=== PATIENT | male | born 1965 | race Caucasian/White ===

== ENCOUNTER 2018-02-20 15:41 | Emergency (ER) | payer SELFPAY ==
[~2018-02-20] VITALS: Ht 167.6 cm; Wt 76.0 kg
[~2018-02-20 15:41] MED LIST: PENI500T PO; TYLE3 PO; Z.0.NO CURRENT MEDS
[2018-02-20 15:52] VITALS: BP 156/90; PULSE 104; RESP 16; TEMP 98.9; O2SAT 96
[2018-02-20 16:12] VITALS: O2SAT 97
--- NOTE | 2018-02-20 16:54 | PD ---
HPI Chief Complaint: Complaint Time Seen by Provider: 16:28 Travel History International Travel<30 days: No Contact w/Intl Traveler<30days: No Traveled to known affect area: No History of Present Illness HPI 52-year-old male complains of abdominal bloating, abdominal pain , scrotal swelling and shortness of breath. Patient states that the symptoms started 2 weeks ago. Patient states that he drinks alcohol daily. Patient states that he drinks 4- 5 mixed drinks a day for many years. Patient has not seen a physician for many years. Patient denies any medical problem. Patient denies any headache. Patient states that he has discomfort bilateral lower rib cage area and with shortness of breath. Patient states that he has mild aching abdominal pain diffuse over the abdomen. Patient denies any pain radiation. Patient denies any fever chills. Patient denies any back pain. Patient complained urinary frequency. Patient denies any nausea vomiting diarrhea. Patient states that he had constipation. PFSH Past Medical History Arthritis: No Asthma: No Autoimmune Disease: No Blood Disorders: No Anxiety: No Depression: No Heart Rhythm Problems: No Cancer: No High Cholesterol: No Chemotherapy: No Chest Pain: No Congestive Heart Failure: No COPD: No Cerebrovascular Accident: No Diabetes: No Diminished Hearing: No GERD: No Glaucoma: No Headaches: No Hepatitis: No Hiatal Hernia: No Hypertension: No Kidney Stones: No Myocardial Infarction: No Radiation Therapy: No Renal Failure: No Seizures: No Sickle Cell Disease: No Sleep Apnea: No Thyroid Disease: No Ulcer: No Tetanus Vaccination: > 5 Years Influenza Vaccination: No Past Surgical History Abdominal Surgery: Yes Appendectomy: Yes Cardiac Surgery: No Ear Surgery: No Endocrine Surgery: No Eye Surgery: No Genitourinary Surgery: No Gynecologic Surgery: No Oral Surgery: No Pacemaker: No Thoracic Surgery: No Other Surgery: Yes Social History Alcohol Use: Yes (6-7 VODKA DRINKS DAILY) Tobacco Use: No Substance Use: Yes (1-2 WKLY COCAINE AND MARIJUANA USE. ) Allergies-Medications (Allergen,Severity, Reaction): Coded Allergies: No Known Allergies (Verified Allergy, Severe, 02/20/18) Reported Meds & Prescriptions Reported Meds & Active Scripts Active Tylenol #3 (Acetaminophen/Codeine Phosphate) 300 Mg/30 Mg Tab 1 Tab PO QIDPRN FOR PAIN Pen Vk (Penicillin V Potassium) 500 Mg Tab 500 Mg PO QID Reported No Current Meds (Miscellaneous Medication) [facility] [place] General / Constitutional: No: Fever Eyes: No: Visual changes HENT: No: Headaches Cardiovascular: No: Chest Pain or Discomfort Respiratory: Positive: Shortness of Breath Gastrointestinal: Positive: Abdominal Pain Genitourinary: Positive: Frequency, Decreased Urinary Output, No: Dysuria Musculoskeletal: No: Pain Skin: No Rash Neurologic: No: Weakness Psychiatric: No: Depression Endocrine: No: Polydipsia Hematologic/Lymphatic: No: Easy Bruising Physical Exam Narrative GENERAL: Well-nourished, well-developed patient. SKIN: Focused skin assessment warm/dry. HEAD: Normocephalic. EYES: Mild bilateral scleral icterus. No injection or drainage. NECK: Supple, trachea midline. No JVD or lymphadenopathy. CARDIOVASCULAR: Regular rate and rhythm without murmurs, gallops, or rubs. RESPIRATORY: Breath sounds equal bilaterally. No accessory muscle use. GASTROINTESTINAL: Abdomen distended. Patient has mild diffuse tenderness over the abdomen. No rebound tenderness. MUSCULOSKELETAL: No cyanosis. Patient had +1 pitting edema lower extremity. BACK: Nontender without obvious deformity. No CVA tenderness. exam: Non-tenderness on palpation of the scrotum or penis. Mild edema noted. No redness no heat. No tenderness on palpation of the testicle. Neurologic exam normal. Data Data Last Documented VS Vital Signs Date Time Temp Pulse Resp B/P (MAP) Pulse Ox O2 Delivery O2 Flow Rate FiO2 02/20/18 17:52 98 16 150/95 (113) 97 Room Air 02/20/18 15:52 98.9 Orders Orders Complete Blood Count With Diff (02/20/18 16:38) Comprehensive Metabolic Panel (02/20/18 16:38) Prothrombin Time / Inr (Pt) (02/20/18 16:38) Act Partial Throm Time (Ptt) (02/20/18 16:38) Lipase (02/20/18 16:38) Urinalysis - C+S If Indicated (02/20/18 16:38) Ammonia (02/20/18 16:38) Chest, Single Ap (02/20/18 16:38) Ct Abd/Pel W/O Iv Contrast (02/20/18 16:38) Iv Access Insert/Monitor (02/20/18 16:38) Ecg Monitoring (02/20/18 16:38) Oximetry (02/20/18 16:38) Alcohol (Ethanol) (02/20/18 16:38) Potassium Chloride (Kcl) (02/20/18 17:45) Potassium Chlor 20 Meq Premix (Kcl 20 Me (02/20/18 17:45) Thiamine Inj (Thiamine Inj) (02/20/18 17:45) Labs Laboratory Tests Test 02/20/18 16:47 02/20/18 17:04 White Blood Count 10.0 TH/MM3 Red Blood Count 3.77 MIL/MM3 Hemoglobin 14.7 GM/DL Hematocrit 42.4 % Mean Corpuscular Volume 112.5 FL Mean Corpuscular Hemoglobin 39.0 PG Mean Corpuscular Hemoglobin Concent 34.6 % Red Cell Distribution Width 15.1 % Platelet Count 111 TH/MM3 Mean Platelet Volume 7.5 FL Neutrophils (%) (Auto) 73.4 % Lymphocytes (%) (Auto) 16.9 % Monocytes (%) (Auto) 8.6 % Eosinophils (%) (Auto) 0.8 % Basophils (%) (Auto) 0.3 % Neutrophils # (Auto) 7.3 TH/MM3 Lymphocytes # (Auto) 1.7 TH/MM3 Monocytes # (Auto) 0.9 TH/MM3 Eosinophils # (Auto) 0.1 TH/MM3 Basophils # (Auto) 0.0 TH/MM3 CBC Comment DIFF FINAL Differential Comment Prothrombin Time 11.4 SEC Prothromb Time International Ratio 1.1 RATIO Activated Partial Thromboplast Time 25.7 SEC Urine Color YELLOW Urine Turbidity CLEAR Urine pH 6.0 Urine Specific Joanna 1.025 Urine Protein 30 mg/dL Urine Glucose (UA) 100 mg/dL Urine Ketones TRACE mg/dL Urine Occult Blood NEG Urine Nitrite NEG Urine Bilirubin MOD Urine Urobilinogen GREATER/EQUAL 8.0 MG/DL Urine Leukocyte Esterase NEG Urine RBC 0-3 /hpf Urine WBC 0-2 /hpf Urine Squamous Epithelial Cells 0-5 /hpf Urine Calcium Oxalate Crystals MANY /hpf Urine Mucus MANY /lpf Microscopic Urinalysis Comment CULT NOT INDICATED Blood Urea Nitrogen 3 MG/DL Creatinine 0.52 MG/DL Random Glucose 109 MG/DL Total Protein 8.3 GM/DL Albumin 2.8 GM/DL Calcium Level 8.7 MG/DL Alkaline Phosphatase 356 U/L Aspartate Amino Transf (AST/SGOT) 259 U/L Alanine Aminotransferase (ALT/SGPT) 55 U/L Total Bilirubin 1.0 MG/DL Sodium Level 140 MEQ/L Potassium Level 2.8 MEQ/L Chloride Level 103 MEQ/L Carbon Dioxide Level 29.2 MEQ/L Anion Gap 8 MEQ/L Estimat Glomerular Filtration Rate 166 ML/MIN Lipase 425 U/L Ethyl Alcohol Level 159 MG/DL Ammonia 54 MCMOL/L [facility] Medical Decision Making Medical Screen Exam Complete: Yes Emergency Medical Condition: Yes Interpretation(s) 1734 PM. CBC with WBC 10.0. Hemoglobin 14.7 hematocrit 42.4. MCV 112.5. Platelet 111. 73 neutrophil. Potassium 2.8. AST 259. Alkaline phosphatase 356. Ammonia 54. Lipase 425. 1808 p.m. Last Impressions Chest X-Ray 02/20/181637 Signed Impressions: Service Date/Time: Tuesday, February 20, 2018 16:46 - CONCLUSION: 11 mm opacity lower lateral right lung could represent pulmonary nodule or focal infiltrate. Jaquan Gonzáles MD Abdomen/Pelvis CT 02/20/181637 Signed Impressions: Service Date/Time: Tuesday, February 20, 2018 17:13 - CONCLUSION: 1. No calcified renal stones or hydronephrosis. 2. Nonspecific scattered subcentimeter periaortic lymph nodes. 3. Steatosis the liver. Jaquan Gonzáles MD 1819 p.m. Alcohol 159. Differential Diagnosis Differential diagnosis including abdominal ascites, liver cirrhosis, CHF, electrolyte abnormality. Narrative Course 52-year-old male with abdominal distention, shortness of breath, scrotal edema. History of EtOH abuse. KCl 40 mEq p.o. given. KCl 20 mEq IV given. Thiamine 100 mg IV given. Diagnosis Primary Impression: Hypokalemia Additional Impressions: Transaminitis Increased ammonia level Alcohol abuse Scrotal edema Patient Instructions: General Instructions Additional Instructions: Take potassium as directed. Advised [facility] alcohol problem. Follow-up local physician. 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 Follow with local physician for nodule pulmonary nodule. Return if increasing pain swelling scrotum. Med/Other Pt SpecificInfo: Prescription(s) given Scripts Potassium Chloride ER (Potassium Chloride ER) 10 Meq Cap 10 MEQ PO DAILY for Electrolyte Replacement, #10 CAP 0 Refills Prov: Codey Manuel MD 4/30/18 Disposition: 01 DISCHARGE HOME Condition: Stable Codey Manuel MD Feb 20, 2018 16:54
[2018-02-20 17:11] LABS: BILIRUBIN, URINE MOD (NEG); BLOOD, URINE NEG (NEG); GLUCOSE,URINE 100 mg/dL (NEG); KETONE, URINE TRACE mg/dL (NEG); NITRITE,URINE NEG (NEG); URINE COLOR YELLOW (YELLW/STRAW); URINE LEUKOCYTE ESTERASE NEG (NEG)
[2018-02-20 17:18] LABS: AUTOMATED NEUTROPHIL # 7.3 TH/MM3 (1.8-7.7); BASOPHIL % 0.3 % (0.0-2.0); EOSINOPHIL # 0.1 TH/MM3 (0-0.4); EOSINOPHIL % 0.8 % (0.0-4.0); HEMATOCRIT 42.4 % (39.0-51.0); HEMOGLOBIN 14.7 GM/DL (13.0-17.0); INTERNATIONAL NORMALIZED RATIO 1.1 RATIO; LYMPH % 16.9 % (9.0-44.0); LYMPHOCYTE # 1.7 TH/MM3 (1.0-4.8); MEAN CELL VOLUME 112.5 FL (80.0-100.0); MEAN CORPUSCULAR HGB CONC 34.6 % (32.0-36.0); MEAN PLATELET VOLUME 7.5 FL (7.0-11.0); MONO % 8.6 % (0.0-8.0); MONOCYTE # 0.9 TH/MM3 (0-0.9); NEUT % 73.4 % (16.0-70.0); PLATELET COUNT 111 TH/MM3 (150-450); PROTHROMBIN TIME - PATIENT 11.4 SEC (9.8-11.6); RED BLOOD COUNT 3.77 MIL/MM3 (4.50-5.90); RED CELL DISTRIBUTION WIDTH 15.1 % (11.6-17.2)
--- NOTE | 2018-02-20 17:27 | RADRPT ---
EXAM DATE/TIME: 02/20/2018 16:46 [facility] COMPARISON: CT ABDOMEN & PELVIS W/O CONTRAST, February 20, 2018, 17:13. INDICATIONS : Shortness of breath. MEDICAL HISTORY : None. SURGICAL HISTORY : None. ENCOUNTER: Initial ACUITY: 1 day PAIN SCORE: 0/10 LOCATION: Bilateral chest FINDINGS: The lungs are symmetrically aerated. There is a focal opacity seen laterally in the lower right lung measuring 11 mm. Both hemidiaphragms are well delineated. The heart is normal in size. CONCLUSION: 11 mm opacity lower lateral right lung could represent pulmonary nodule or focal infiltrate. Jaquan Gonzáles MD on February 20, 2018.at 17:24 Board Certified Radiologist. This report was verified electronically.
[2018-02-20 17:29] LABS: ALBUMIN 2.8 GM/DL (3.4-5.0); ALKALINE PHOSPHATASE 356 U/L (45-117); ALT (GPT) 55 U/L (12-78); AST (GOT) 259 U/L (15-37); BICARBONATE 29.2 MEQ/L (21.0-32.0); BLOOD UREA NITROGEN 3 MG/DL (7-18); CALCIUM 8.7 MG/DL (8.5-10.1); CHLORIDE 103 MEQ/L (98-107); CREATININE 0.52 MG/DL (0.60-1.30); GLOMERULAR FILTRATION RATE 166 ML/MIN (>89); GLUCOSE,RANDOM 109 MG/DL (74-106); SODIUM (NA) 140 MEQ/L (136-145); TOTAL PROTEIN 8.3 GM/DL (6.4-8.2)
[2018-02-20] MEDS ORDERED: THIAMINE INJ 100 MG in SODIUM CHLORIDE 0.9% INJ 100 ML IV ONE (17:45)
[2018-02-20] MEDS ORDERED: POTASSIUM CHLOR 20 MEQ PREMIX 100 ML IV ONE (17:45)
[2018-02-20] MEDS ORDERED: POTASSIUM CHLORIDE 20 MEQ CONTROLLED RELEASE TAB PO ONE (17:45)
[2018-02-20 17:46] LABS: MUCUS URINE MANY /lpf (OCC); RBC, URINE 0-3 /hpf (0-3); SQUAMOUS EPITHELIAL CELL URINE 0-5 /hpf (0-5); WBC, URINE 0-2 /hpf (0-5)
[2018-02-20 17:47] LABS: CALCIUM OXALATE CRYSTALS,URINE MANY /hpf
[2018-02-20 17:52] VITALS: BP 150/95; PULSE 98; RESP 16; O2SAT 97
--- NOTE | 2018-02-20 17:59 | RADRPT ---
EXAM DATE/TIME: 02/20/2018 17:13 [facility] COMPARISON: No previous studies available for comparison. INDICATIONS : Abdominal bloating and scrotal swelling with shortness of breath. ORAL CONTRAST: No oral contrast ingested. RADIATION DOSE: 12.31 CTDIvol (mGy) MEDICAL HISTORY : None SURGICAL HISTORY : Appendectomy. ENCOUNTER: Initial ACUITY: 2 weeks PAIN SCALE: 7/10 LOCATION: Bilateral pelvis abdomen TECHNIQUE: Volumetric scanning of the abdomen and pelvis was performed. Using automated exposure control and ad justment of the mA and/or kV according to patient size, radiation dose was kept as low as reasonably achievable to obtain optimal diagnostic quality images. DICOM format image data is available electro nically for review and comparison. FINDINGS: LOWER LUNGS: The visualized lower lungs are clear. LIVER: Diffuse fatty change throughout the liver. No focal lesions for noncontrast technique. No calcified gallstones. SPLEEN: Normal size without lesion. PANCREAS: Within normal limits. KIDNEYS: Normal in size and shape. There is no mass, stone, or hydronephrosis. ADRENAL GLANDS: Within normal limits. VASCULAR: There is no aortic aneurysm. BOWEL/MESENTERY: The stomach, small bowel, and colon demonstrate no acute abnormality. There is no free intraperitone al air or fluid. ABDOMINAL WALL: Within normal limits. RETROPERITONEUM: Multiple subcentimeter periaortic lymph nodes, nonspecific in appearance. BLADDER: No wall thickening or mass. REPRODUCTIVE: Within normal limits. INGUINAL: There is no lymphadenopathy or hernia. MUSCULOSKELETAL: Within normal limits for patient age. CONCLUSION: 1. No calcified renal stones or hydronephrosis. 2. Nonspecific scattered subcentimeter periaortic lymph nodes. 3. Steatosis the liver. Jaquan Gonzáles MD on February 20, 2018 at 17:54 Board Certified Radiologist. This report was verified electronically.
[2018-02-20] MEDS ORDERED: POTA10CA PO (18:33)
[2018-02-20 19:21] VITALS: BP 147/94; PULSE 93; RESP 18; O2SAT 97
== END 2018-02-20 19:28 | disposition home or self-care (01) ==
LOC: PHED 15:41
DX: E87.6 Hypokalemia (principal); R74.0 Nonspecific elevation of levels of transaminase and lactic acid dehydrogenase [LDH]; F10.10 Alcohol abuse, uncomplicated; Y90.6 Blood alcohol level of 120-199 mg/100 ml; N50.89 Other specified disorders of the male genital organs; R06.02 Shortness of breath; K59.00 Constipation, unspecified; F12.90 Cannabis use, unspecified, uncomplicated
CPT/HCPCS: 71045; 74176; 80053; 80307; 81001; 82140; 83690; 85025; 85610; 85730; 96365; 96366; 96368; 99285; J3411; J3480

== ENCOUNTER 2018-04-27 05:46 | Inpatient (IN) ==
[2018-04-27] MEDS ORDERED: Pantoprazole Inj 40 MG Vial IV.PUSH ONE ×2 (07:13→07:40)
[2018-04-27 07:43] LABS: Baso # (Auto) 0.1 th/mm3 (0.0-0.2); Baso % (Auto) 0.4 % (0.0-2.0); Eos % (Auto) 0.1 % (0.0-4.0); Hematocrit 43.5 % (39.0-51.0); Hemoglobin 15.1 gm/dL (13.0-17.0); Lymph # (Auto) 1.6 th/mm3 (1.0-4.8); Lymph % (Auto) 11.5 % (9.0-44.0); Mean Corpuscular HGB Conc 34.6 % (32.0-36.0); Mean Corpuscular Hemoglobin 38.3 pg (27.0-34.0); Mean Corpuscular Volume 110.7 fL (80.0-100.0); Mean Platelet Volume 8.4 fL (7.0-11.0); Mono # (Auto) 1.1 th/mm3 (0.0-0.9); Mono % (Auto) 8.3 % (0.0-8.0); Neut % (Auto) 79.7 % (16.0-70.0); Platelet Count 130 th/mm3 (150-450); Red Blood Count 3.93 mil/mm3 (4.50-5.90); Red Cell Distribution Width 13.7 % (11.6-17.2); White Blood Count 13.8 th/mm3 (4.0-11.0)
--- NOTE | 2018-04-27 07:48 | ED ---
HPI General Chief Complaint: Abdominal Pain Stated Complaint: ABD PAIN/V BLOOD Time Seen by Provider: 04/27/18 07:35 Source: patient and family Limitations: no limitations History of Present Illness HPI narrative: 52 old male with episode of abdominal pain and right testicle swelled pain and redness since January. He states he went to [facility] and had workup and was told that he needed to lose weight. He states he has not been evaluated further since then but his symptoms persisted and got worse over the past couple days so he elected to come in. He states he also started having blood when he vomits over the past couple of days. complaint: abdominal pain Onset (ago): month(s) Pain Consistency: constant Location: diffuse Severity: severe Quality: sharp Radiation: none Migration to: no migration Relieving factors: nothing Exacerbating factors: movement Context: history of similar episodes Associated symptoms: other Related Data Home Medications Medication Instructions Recorded Confirmed No Known Home Medications 04/27/18 04/27/18 Allergies Allergy/AdvReac Type Severity Reaction Status Date / Time No Known Allergies Allergy Unverified 04/27/18 09:41 Review of Systems ROS Unobtainable All other systems reviewed negative except as stated in HPI [facility] Social History Social History Substance History: No History of Abuse Second Hand Smoke Exposure: No Smoking Status: Former smoker How Often Do You Have a Drink Containing Alcohol: 4 or more times a week ( EXCESSIVE ALCOHOL ABUSE) Recent Travel in [facility] within the Last 8 Weeks: No Recent Out of Country Travel within the Last 8 Weeks: No Immunization History Tetanus Immunization: Unsure Hx Influenza Vaccine This Season: No Exam Narrative Exam Narrative: GENERAL: 52-year-old male who appears uncomfortable SKIN: Focused skin assessment warm/dry. HEAD: Atraumatic. Normocephalic. EYES: Pupils equal and round. No scleral icterus. No injection or drainage. ENT: No nasal bleeding or discharge. Mucous membranes pink and moist. NECK: Trachea midline. CARDIOVASCULAR: Tachycardic rate and rhythm. No murmur appreciated. RESPIRATORY: No accessory muscle use. Clear to auscultation. Breath sounds equal bilaterally. GASTROINTESTINAL: Abdomen soft, mild tenderness diffusely with moderate distention. MUSCULOSKELETAL: No obvious deformities. No clubbing. No cyanosis. No edema. NEUROLOGICAL: Awake and alert. No obvious cranial nerve deficits. Motor grossly within normal limits. Normal speech. GENITOURINARY: Testes descended bilaterally. Right testicle appears enlarged with overlying redness to scrotal sac, No urethral discharge. Course Hospital Course: Workup reveals elevated LFTs and given hematemesis he will need further workup. He was placed on Protonix and octreotide and agrees to admission Consultations Consultation #1: Dr. Joiner agrees to admission Initial Documented Vital Signs Temperature 98.3 F 04/27/18 05:59 Pulse Rate 120 H 04/27/18 05:59 Respiratory Rate 20 04/27/18 05:59 Blood Pressure 125/73 04/27/18 05:59 Pulse Oximetry 100 04/27/18 05:59 Last Documented Vital Signs Temperature 97.8 F 04/27/18 13:09 Pulse Rate 102 H 04/27/18 13:09 Respiratory Rate 18 04/27/18 13:09 Blood Pressure 130/81 04/27/18 13:09 Pulse Oximetry 98 04/27/18 09:00 Medical Decision Making [facility] Narrative Medical decision making narrative: A 52-year-old male with hematemesis for 2 days with persistent abdominal pain. Patient also has enlarged right testicle area with overlying redness that has not been worked up. Will check blood work , urinalysis, Doppler ultrasound, CT and place on Protonix and IV fluids and reevaluate. Differential Diagnosis Differential Diagnosis: Torsion, mass, hernia, gastritis, gastroenteritis, diverticulosis Lab Data Lab results reviewed: Yes I reviewed the patient's lab results. Result diagrams: 04/27/18 14:40 04/27/18 07:11 Lab Results 04/27/18 04/27/18 04/27/18 Range/Units 07:11 07:11 07:11 WBC 13.8 H (4.0-11.0) th/mm3 RBC 3.93 L (4.50-5.90) mil/mm3 Hgb 15.1 (13.0-17.0) gm/dL Hct 43.5 (39.0-51.0) % MCV 110.7 H (80.0-100.0) fL MCH 38.3 H (27.0-34.0) pg MCHC 34.6 (32.0-36.0) % RDW 13.7 (11.6-17.2) % Plt Count 130 L (150-450) th/mm3 MPV 8.4 (7.0-11.0) fL Neut % (Auto) 79.7 H (16.0-70.0) % Lymph % (Auto) 11.5 (9.0-44.0) % [place] % (Auto) 8.3 H (0.0-8.0) % Eos % (Auto) 0.1 (0.0-4.0) % Baso % (Auto) 0.4 (0.0-2.0) % Neut # (Auto) 11.0 H (1.8-7.7) th/mm3 Lymph # (Auto) 1.6 (1.0-4.8) th/mm3 [place] # (Auto) 1.1 H (0.0-0.9) th/mm3 Eos # (Auto) 0.0 (0.0-0.4) th/mm3 Baso # (Auto) 0.1 (0.0-0.2) th/mm3 WBC Differential . Differential Comment Auto diff final Sodium 136 (136-145) meq/L Potassium 3.2 L (3.5-5.1) meq/L Chloride 94 L (98-107) meq/L Carbon Dioxide 26.8 (21.0-32.0) meq/L Anion Gap 15 (5-15) meq/L BUN 3 L (7-18) mg/dL Creatinine 0.68 (0.60-1.30) mg/dL Estimated GFR Greater than 89 (>89) mL/min Random Glucose 94 (74-106) mg/dL Calcium 8.7 (8.5-10.1) mg/dL Total Bilirubin 6.2 H (0.2-1.0) mg/dL AST 236 H (15-37) U/L ALT 44 (12-78) U/L Alkaline Phosphatase 345 H (45-117) U/L Total Protein 8.9 H (6.4-8.2) g/dL Albumin 2.5 L (3.4-5.0) g/dL Lipase 108 (73-393) U/L Urine Color (Yellw/Straw) Urine Clarity (Clear) Urine pH (5.0-8.5) Ur Specific [place] (1.002-1.035) Urine Protein (Neg-Trace) mg/dL Urine Glucose (UA) (Negative) mg/dL Urine Ketones (Negative) mg/dL Urine Occult Blood (Negative) Urine Nitrate (Negative) Urine Bilirubin (Negative) Urine Ictotest (Negative) Urine Urobilinogen (Less than 2) mg/dL Ur Leukocyte Esterase (Negative) Urine RBC (0-3) /hpf Urine WBC (0-5) /hpf Ur Squamous Epith Cells (0-5) /hpf Urine Bacteria (None) /hpf Hyaline Casts (0-3) /lpf Urine Mucus (Occasional) /lpf Micro UA Comment Urine Culture Comments Blood Type B Positive Antibody Screen Negative 04/27/18 04/27/18 Range/Units 08:00 14:40 WBC (4.0-11.0) th/mm3 RBC (4.50-5.90) mil/mm3 Hgb 14.8 (13.0-17.0) gm/dL Hct 43.3 (39.0-51.0) % MCV (80.0-100.0) fL MCH (27.0-34.0) pg MCHC (32.0-36.0) % RDW (11.6-17.2) % Plt Count (150-450) th/mm3 MPV (7.0-11.0) fL Neut % (Auto) (16.0-70.0) % Lymph % (Auto) (9.0-44.0) % Roosevelt % (Auto) (0.0-8.0) % Eos % (Auto) (0.0-4.0) % Baso % (Auto) (0.0-2.0) % Neut # (Auto) (1.8-7.7) th/mm3 Lymph # (Auto) (1.0-4.8) th/mm3 Roosevelt # (Auto) (0.0-0.9) th/mm3 Eos # (Auto) (0.0-0.4) th/mm3 Baso # (Auto) (0.0-0.2) th/mm3 WBC Differential Differential Comment Sodium (136-145) meq/L Potassium (3.5-5.1) meq/L Chloride (98-107) meq/L Carbon Dioxide (21.0-32.0) meq/L Anion Gap (5-15) meq/L BUN (7-18) mg/dL Creatinine (0.60-1.30) mg/dL Estimated GFR (>89) mL/min Random Glucose (74-106) mg/dL Calcium (8.5-10.1) mg/dL Total Bilirubin (0.2-1.0) mg/dL AST (15-37) U/L ALT (12-78) U/L Alkaline Phosphatase (45-117) U/L Total Protein (6.4-8.2) g/dL Albumin (3.4-5.0) g/dL Lipase (73-393) U/L Urine Color [place] (Yellw/Straw) Urine Clarity Clear (Clear) Urine pH 6.0 (5.0-8.5) Ur Specific [place] 1.020 (1.002-1.035) Urine Protein 30 H (Neg-Trace) mg/dL Urine Glucose (UA) Negative (Negative) mg/dL Urine Ketones Negative (Negative) mg/dL Urine Occult Blood Negative (Negative) Urine Nitrate Negative (Negative) Urine Bilirubin Moderate H (Negative) Urine Ictotest Positive H (Negative) Urine Urobilinogen 4 or greater (Less than 2) mg/dL Ur Leukocyte Esterase Negative (Negative) Urine RBC 1 (0-3) /hpf Urine WBC 7 H (0-5) /hpf Ur Squamous Epith Cells <1 (0-5) /hpf Urine Bacteria Occasional H (None) /hpf Hyaline Casts 10 (0-3) /lpf Urine Mucus Many H (Occasional) /lpf Micro UA Comment Culture not ind Urine Culture Comments Culture not ind Blood Type Antibody Screen Imaging Data Attestation: I personally reviewed and interpreted this imaging study as follows : Radiologist's impression: ITS Impressions Abdomen/Pelvis CT 04/27/18 07:13 CONCLUSION: 1. Stable CT scan of the abdomen and pelvis compared to the prior study. 2. Stable hepatomegaly with diffuse fatty infiltration and/or hepatocellular disease . 3. There is a trace of ascites adjacent to the liver and deep in the pelvis. 4. A few stable nonspecific subcentimeter para-aortic lymph nodes. Scrotum Ultrasound 04/27/18 07:40 CONCLUSION: 1. Both testicles are within normal limits. 2. There is a simple appearing left epididymal cyst in the head of the epididymis measuring 1.6 x 1.7 cm. 3. There is a moderate to large right-sided hydrocele. Discharge Plan Discharge Disposition Patient Disposition: 30 Still Patient Discharge Details Discharge Problem: Hematemesis, Elevated LFTs, Abdominal pain, Left hydrocele, Alcohol abuse Physicians Team ED Provider: Shereen Oneil Primary Care Provider: UNKNOWN, Attending Provider: Valdez Joiner Other Providers: Cindy Pond Discharge Interventions Interventions: Vital Signs Last Done: 04/27/18 11:03 Status ED Status: Admitted Patient
[2018-04-27 07:58] LABS: Alanine Aminotransferase 44 U/L (12-78)
[2018-04-27 08:01] LABS: Alkaline Phosphatase 345 U/L (45-117); Total Protein 8.9 g/dL (6.4-8.2)
[2018-04-27 08:03] LABS: Albumin 2.5 g/dL (3.4-5.0); Anion Gap 15 meq/L (5-15); Blood Urea Nitrogen 3 mg/dL (7-18); Calcium 8.7 mg/dL (8.5-10.1); Carbon Dioxide 26.8 meq/L (21.0-32.0); Chloride 94 meq/L (98-107); Glomerular Filtration Rate Greater Than 89 mL/min (>89); Glucose,Random 94 mg/dL (74-106); Lipase 108 U/L (73-393); Sodium 136 meq/L (136-145)
[2018-04-27 08:04] LABS: Aspartate Aminotransferase 236 U/L (15-37); Potassium 3.2 meq/L (3.5-5.1)
[2018-04-27 08:48] LABS: Bacteria,Urine Occasional /hpf; Bilirubin,Urine Moderate (Negative); Clarity,Urine Clear (Clear); Color,Urine Amber (Yellw/Straw); Glucose,Urine (UA) Negative (Negative); Hyaline Casts,Urine 10 /lpf (0-3); Leukocyte Esterase,Urine Negative (Negative); Mucus,Urine Many /lpf (Occasional); Nitrite,Urine Negative (Negative); Squamous Epithelial Cell,Urine <1 /hpf (0-5); Urobilinogen,Urine 4 or Greater mg/dL (Less than 2)
[2018-04-27 08:49] LABS: Ictotest,Urine Positive (Negative)
--- NOTE | 2018-04-27 09:00 | US ---
EXAM DATE: 04/27/2018 8:47 AM EDT AGE/SEX: 52 years / Male INDICATIONS: Testicular pain. CLINICAL DATA: This is the patient's initial encounter. Patient reports that signs and symptoms have been present for 2 months and indicates a pain score of 4/10. MEDICAL/SURGICAL HISTORY: . Testicular pain. None. COMPARISON: [facility], CT ABDOMEN & PELVIS W/O CONTRAST, 02/20/2018. . MEASUREMENTS: Right Testicle:__4.8 x 3.0 x 2.1 cm Left Testicle:__4.1 x 2.7 x 1.8 cm FINDINGS: RIGHT: Testicle: Homogeneous echotexture without intra or extratesticular mass. Blood flow is symmetric and within normal limits. There is a tiny appendix teste measuring 4 mm. Epididymis: Within normal limits. Hydrocele: Moderate-large hydrocele present. Varicocele: No evidence of varicocele. LEFT: Testicle: Homogeneous echotexture without intra or extratesticular mass. Blood flow is symmetric and within normal limits. Epididymis: There is a cyst in the head of the left epididymis measuring approximately 1.6 x 1.7. Hydrocele: No hydrocele. Varicocele: No evidence of varicocele. Scrotum: Within normal limits. CONCLUSION: 1. Both testicles are within normal limits. 2. There is a simple appearing left epididymal cyst in the head of the epididymis measuring 1.6 x 1. 7 cm. 3. There is a moderate to large right-sided hydrocele. Electronically signed by: Baltazar Lipscomb MD 04/27/2018 8:59 AM EDT
[2018-04-27] MEDS: Pantoprazole Inj 80 MG in Sodium Chlor 0.9% Inj 100 ML IV.CONT SCH ×2 (10:05→17:47)
[2018-04-27] MEDS: Octreotide Inj 500 MCG in Sodium Chlor 0.9% Inj 500 ML IV.CONT SCH (10:05)
[2018-04-27] MEDS ORDERED: Acetaminophen 325 MG Tablet PO PRN ×2 (11:16)
[2018-04-27] MEDS ORDERED: Naloxone Inj 0.4 MG/ML Vial IV.PUSH PRN (11:16)
[2018-04-27] MEDS ORDERED: Morphine Inj 4 MG/ML Vial IV.PUSH PRN ×2 (11:16)
[2018-04-27] MEDS ORDERED: Bisacodyl 10 MG Supp RECTAL PRN (11:16)
[2018-04-27] MEDS: KCL 20 mEq/D5W/NaCl 0.45% Inj 1,000 ML IV.CONT SCH (12:06)
--- NOTE | 2018-04-27 12:31 | P.CONGI ---
History of Present Illness Consult date: 04/27/18 Consult reason: Hematemesis Chief complaint: Hematemesis, hyperbilirubinemia, abdominal pain History of Present Illness: This is a 52 yo M with medical history significant for ETOH abuse who presents to [facility] with complaints of shortness of breath, testicular swelling, abdominal pain and swelling, and hematemesis. Our service has been consulted to evaluate pt for reports of hematemesis. Pt reports he has been having generalized abdominal pain for months associated with swelling. Pain is described as a grumbling sensation when he lies down and becomes unbearable with sharp pains made worse with movement and palpation. Was seen at [facility] emergency department for same complaint in January, CT abdomen and pelvis was done which revealed nonspecific scattered subcentimeter periaortic lymph nodes and steatosis of the liver, pt was discharged home with Potassium supplements. Pt reports he is now having hematemesis for the past three days, approximately 4 episodes, last episode at home prior to coming to the hospital. Prior to this he experiencing a lot of nausea and dry heaves. Denies hematochezia and melena. No BM in over a week, has tried Dulcolax at home with no relief. States does not normally have issues with constipation. Reports he has never seen a GI doctor in the past, no previous EGD or colonoscopy. Pt is noted to have elevated LFTs, he is a heavy drinker, reports a few drinks of liquor daily. Denies known diagnosis of liver issues. Denies illicit drug use and nicotine use. <Dea Godfrey - Last Filed: 04/27/18 12:14> Review of Systems Gastrointestinal: Reports abdominal pain, Reports bloating, Reports constipation , Reports nausea, Reports vomiting, Reports vomiting blood, Denies black, tarry stools, Denies bright, red blood in stools, Denies difficulty swallowing, Denies incontinent of stools, Denies pain with swallowing <Dea Godfrey - Last Filed: 04/27/18 12:14> PMFSH - History History Provided By: Patient - Tobacco History Second Hand Smoke Exposure: No Tobacco Use In Past 30 Days: No Smoking Status: Former smoker - Alcohol History How Often Do You Have a Drink Containing Alcohol: 4 or more times a week - Substance Use History Substance History: No History of Abuse - Travel History Recent Travel in the [facility] Within the Last 8 Weeks: No Recent Travel Out of the Country Within the Last 8 Weeks: No - Immunization History Tetanus Immunization: Unsure Hx Influenza Vaccine This Season: No <JoseduglasDea - Last Filed: 04/27/18 12:14> Medications and Allergies Active Medications: Active Medications Acetaminophen (Tylenol) 650 mg PO Q4H PRN PRN Reason: Temp > 100.4 Acetaminophen (Tylenol) 650 mg PO Q6H PRN PRN Reason: PAIN SCALE 1 TO 2 Al Hydroxide/Mg Hydroxide (Milk Of Magnesia Liq) 30 ml PO Q12H PRN PRN Reason: Mild Constipation Bisacodyl (Dulcolax Supp) 10 mg RECTAL DAILY PRN PRN Reason: SEVERE CONSITIPATION Octreotide Acetate 500 mcg/ (Sodium Chloride) 500.5 mls @ 25.02 mls/hr IV.CONT .Q20H1M [facility] Last Admin: 04/27/18 10:05 Dose: 25 mcg/hr, 25.02 mls/hr Pantoprazole Sodium 80 mg/ (Sodium Chloride) 100 mls @ 10 mls/hr IV.CONT CONT [facility] Last Admin: 04/27/18 10:05 Dose: 10 mls/hr Ceftriaxone Sodium 1,000 mg/ (Sodium Chloride) 100 mls @ 200 mls/hr IV.SIG Q24H [facility] Last Admin: 04/27/18 12:06 Dose: 200 mls/hr Potassium Chloride/Dextrose/Sod Cl (D5w/1/2ns + Kcl 20 Meq Inj) 1,000 mls @ 100 mls/hr IV.CONT .Q10H [facility] Last Admin: 04/27/18 12:06 Dose: 100 mls/hr Lactulose (Lactulose Liq) 30 ml PO DAILY PRN PRN Reason: SEVERE CONSITIPATION Metoclopramide HCl (Reglan Inj) 5 mg IV.PUSH Q6H PRN; Protocol PRN Reason: NAUSEA OR VOMITING Morphine Sulfate (Morphine Inj) 2 mg IV.PUSH Q3H PRN PRN Reason: PAIN 3-5; IF UABLE TO TAKE PO Morphine Sulfate (Morphine Inj) 4 mg IV.PUSH Q3H PRN PRN Reason: PAIN 6-10;IF UNABLE TO TAKE PO Naloxone HCl (Narcan Inj) 0.4 mg IV.PUSH UNSCH PRN PRN Reason: SEE LABEL COMMENTS Ondansetron HCl (Zofran Odt) 4 mg PO Q6H PRN PRN Reason: NAUSEA OR VOMITING Oxycodone/Acetaminophen (Percocet 10/325 Mg) 1 tab PO Q6H PRN PRN Reason: PAIN SCALE 6 TO 10 Oxycodone/Acetaminophen (Percocet 5/325 Mg) 1 tab PO Q6H PRN PRN Reason: PAIN SCALE 3 TO 5 Pantoprazole Sodium (Protonix Inj) 40 mg IV.PUSH BID TOM Senna/Docusate Sodium (Anabel-Colace) 1 tab PO BID TOM Sennosides (Senokot) 17.2 mg PO Q12H PRN PRN Reason: Moderate Constipation Sodium Chloride (Ns Flush) 2 ml IV.FLUSH BID TOM Sodium Chloride (Ns Flush) 2 ml IV.FLUSH UNSCH PRN PRN Reason: FLUSH AFTER USING IV ACCESS Temazepam (Restoril) 15 mg PO HS PRN PRN Reason: INSOMNIA <Dea Godrfey - Last Filed: 04/27/18 12:14> Active Medications: Active Medications Acetaminophen (Tylenol) 650 mg PO Q4H PRN PRN Reason: Temp > 100.4 Acetaminophen (Tylenol) 650 mg PO Q6H PRN PRN Reason: PAIN SCALE 1 TO 2 Al Hydroxide/Mg Hydroxide (Milk Of Magnesia Liq) 30 ml PO Q12H PRN PRN Reason: Mild Constipation Bisacodyl (Dulcolax Supp) 10 mg RECTAL DAILY PRN PRN Reason: SEVERE CONSITIPATION Clonidine HCl (Catapres) 0.1 mg PO Q6HR PRN PRN Reason: HYPERTENSION Octreotide Acetate 500 mcg/ (Sodium Chloride) 500.5 mls @ 25.02 mls/hr IV.CONT .Q20H1M [facility] Last Admin: 04/27/18 10:05 Dose: 25 mcg/hr, 25.02 mls/hr Pantoprazole Sodium 80 mg/ (Sodium Chloride) 100 mls @ 10 mls/hr IV.CONT CONT [facility] Last Admin: 04/27/18 10:05 Dose: 10 mls/hr Ceftriaxone Sodium 1,000 mg/ (Sodium Chloride) 100 mls @ 200 mls/hr IV.SIG Q24H [facility] Last Infusion: 04/27/18 12:35 Dose: Infused Potassium Chloride/Dextrose/Sod Cl (D5w/1/2ns + Kcl 20 Meq Inj) 1,000 mls @ 100 mls/hr IV.CONT .Q10H T[facility] Last Admin: 04/27/18 12:06 Dose: 100 mls/hr Lactulose (Lactulose Liq) 30 ml PO DAILY PRN PRN Reason: SEVERE CONSITIPATION Lactulose (Lactulose Liq) 30 ml PO BID TOM Metoclopramide HCl (Reglan Inj) 5 mg IV.PUSH Q6H PRN; Protocol PRN Reason: NAUSEA OR VOMITING Morphine Sulfate (Morphine Inj) 2 mg IV.PUSH Q3H PRN PRN Reason: PAIN 3-5; IF UABLE TO TAKE PO Morphine Sulfate (Morphine Inj) 4 mg IV.PUSH Q3H PRN PRN Reason: PAIN 6-10;IF UNABLE TO TAKE PO Last Admin: 04/27/18 15:17 Dose: 4 mg Naloxone HCl (Narcan Inj) 0.4 mg IV.PUSH UNSCH PRN PRN Reason: SEE LABEL COMMENTS Ondansetron HCl (Zofran Odt) 4 mg PO Q6H PRN PRN Reason: NAUSEA OR VOMITING Oxycodone/Acetaminophen (Percocet 10/325 Mg) 1 tab PO Q6H PRN PRN Reason: PAIN SCALE 6 TO 10 Oxycodone/Acetaminophen (Percocet 5/325 Mg) 1 tab PO Q6H PRN PRN Reason: PAIN SCALE 3 TO 5 Pantoprazole Sodium (Protonix Inj) 40 mg IV.PUSH BID TOM Senna/Docusate Sodium (Anabel-Colace) 1 tab PO BID [facility] Sennosides (Senokot) 17.2 mg PO Q12H PRN PRN Reason: Moderate Constipation Sodium Chloride (Ns Flush) 2 ml IV.FLUSH BID TOM Sodium Chloride (Ns Flush) 2 ml IV.FLUSH UNSCH PRN PRN Reason: FLUSH AFTER USING IV ACCESS Temazepam (Restoril) 15 mg PO HS PRN PRN Reason: INSOMNIA <Cindy Pond - Last Filed: 04/27/18 17:09> Allergies Allergy/AdvReac Type Severity Reaction Status Date / Time No Known Allergies Allergy Unverified 04/27/18 09:41 Home Medications Medication Instructions Recorded Confirmed Type No Known Home Medications 04/27/18 04/27/18 History Exam Vital signs: Vital Signs 04/27/18 05:59 04/27/18 06:42 04/27/18 09:00 Temperature 98.3 F 99.3 F 97.7 F Pulse Rate 120 H 115 H 98 H Respiratory Rate 20 20 17 Blood Pressure 125/73 120/80 124/83 Pulse Oximetry 100 100 98 04/27/18 11:03 Temperature 97.8 F Pulse Rate 96 H Respiratory Rate 16 Blood Pressure 121/78 Pulse Oximetry Intake & Output 04/26/18 04/27/18 04/27/18 18:59 06:59 18:59 Weight 72.575 kg - Constitutional no acute distress - Routine HEENT Exam Head: Present: normocephalic, atraumatic Eye: Present: conjunctival icterus - Routine Respiratory Exam Present: CTA bilaterally. Absent: accessory muscle use - Routine Cardiovascular Exam Present: RRR - Routine Abdominal Exam Present: soft, normoactive bowel sounds, tenderness (generalized tenderness ), distended. Absent: rebound, guarding, firm - Routine Skin Exam Present: jaundice - Routine Neurological Exam Present: alert, oriented X3 <Dea Godfrey - Last Filed: 04/27/18 12:14> Vital signs: Vital Signs 04/27/18 05:59 04/27/18 06:42 04/27/18 09:00 Temperature 98.3 F 99.3 F 97.7 F Pulse Rate 120 H 115 H 98 H Respiratory Rate 20 20 17 Blood Pressure 125/73 120/80 124/83 Pulse Oximetry 100 100 98 04/27/18 11:03 04/27/18 11:20 04/27/18 13:09 Temperature 97.8 F 97.8 F Pulse Rate 96 H 102 H 102 H Respiratory Rate 16 18 Blood Pressure 121/78 130/81 Pulse Oximetry 04/27/18 15:00 04/27/18 15:30 04/27/18 15:54 Temperature 97.7 F 97.8 F Pulse Rate 104 H 102 H Respiratory Rate 18 16 17 Blood Pressure 129/75 122/77 Pulse Oximetry Intake & Output 04/26/18 04/27/18 04/27/18 18:59 06:59 18:59 Intake Total 100 / 100 Balance 100 / 100 Weight 72.575 kg Intake: IV 100 / 100 Rocephin Inj 1,000 MG In NS Inj 100 / 100 100 ML @ 200 mls/hr IV.SIG Q24H [facility] Rx#:[id number] <Cindy Pond - Last Filed: 04/27/18 17:09> Results - Labs CBC & Chem 7: 04/27/18 07:11 04/27/18 07:11 Labs: Laboratory Results - last 24 hr 04/27/18 04/27/18 04/27/18 07:11 07:11 07:11 WBC 13.8 H RBC 3.93 L Hgb 15.1 Hct 43.5 MCV 110.7 H MCH 38.3 H MCHC 34.6 RDW 13.7 Plt Count 130 L MPV 8.4 Neut % (Auto) 79.7 H Lymph % (Auto) 11.5 [place] % (Auto) 8.3 H Eos % (Auto) 0.1 Baso % (Auto) 0.4 Neut # (Auto) 11.0 H Lymph # (Auto) 1.6 [place] # (Auto) 1.1 H Eos # (Auto) 0.0 Baso # (Auto) 0.1 WBC Differential . Differential Comment Auto diff final Sodium 136 Potassium 3.2 L Chloride 94 L Carbon Dioxide 26.8 Anion Gap 15 BUN 3 L Creatinine 0.68 Estimated GFR Greater than 89 Random Glucose 94 Calcium 8.7 Total Bilirubin 6.2 H AST 236 H ALT 44 Alkaline Phosphatase 345 H Total Protein 8.9 H Albumin 2.5 L Lipase 108 Urine Color Urine Clarity Urine pH Ur Specific [place] Urine Protein Urine Glucose (UA) Urine Ketones Urine Occult Blood Urine Nitrate Urine Bilirubin Urine Ictotest Urine Urobilinogen Ur Leukocyte Esterase Urine RBC Urine WBC Ur Squamous Epith Cells Urine Bacteria Hyaline Casts Urine Mucus Micro UA Comment Urine Culture Comments Blood Type B Positive Antibody Screen Negative 04/27/18 08:00 WBC RBC Hgb Hct MCV MCH MCHC RDW Plt Count MPV Neut % (Auto) Lymph % (Auto) [place] % (Auto) Eos % (Auto) Baso % (Auto) Neut # (Auto) Lymph # (Auto) [place] # (Auto) Eos # (Auto) Baso # (Auto) WBC Differential Differential Comment Sodium Potassium Chloride Carbon Dioxide Anion Gap BUN Creatinine Estimated GFR Random Glucose Calcium Total Bilirubin AST ALT Alkaline Phosphatase Total Protein Albumin Lipase Urine Color [place] Urine Clarity Clear Urine pH 6.0 Ur Specific [place] 1.020 Urine Protein 30 H Urine Glucose (UA) Negative Urine Ketones Negative Urine Occult Blood Negative Urine Nitrate Negative Urine Bilirubin Moderate H Urine Ictotest Positive H Urine Urobilinogen 4 or greater Ur Leukocyte Esterase Negative Urine RBC 1 Urine WBC 7 H Ur Squamous Epith Cells <1 Urine Bacteria Occasional H Hyaline Casts 10 Urine Mucus Many H Micro UA Comment Culture not ind Urine Culture Comments Culture not ind Blood Type Antibody Screen - Imaging Impressions Abdomen/Pelvis CT 04/27/18 07:13 CONCLUSION: 1. Stable CT scan of the abdomen and pelvis compared to the prior study. 2. Stable hepatomegaly with diffuse fatty infiltration and/or hepatocellular disease . 3. There is a trace of ascites adjacent to the liver and deep in the pelvis. 4. A few stable nonspecific subcentimeter para-aortic lymph nodes. Scrotum Ultrasound 04/27/18 07:40 CONCLUSION: 1. Both testicles are within normal limits. 2. There is a simple appearing left epididymal cyst in the head of the epididymis measuring 1.6 x 1.7 cm. 3. There is a moderate to large right-sided hydrocele. <Dea Godfrey - Last Filed: 04/27/18 12:14> - Labs CBC & Chem 7: 04/27/18 14:40 04/27/18 07:11 Labs: Laboratory Results - last 24 hr 04/27/18 04/27/18 04/27/18 07:11 07:11 07:11 WBC 13.8 H RBC 3.93 L Hgb 15.1 Hct 43.5 MCV 110.7 H MCH 38.3 H MCHC 34.6 RDW 13.7 Plt Count 130 L MPV 8.4 Neut % (Auto) 79.7 H Lymph % (Auto) 11.5 [place] % (Auto) 8.3 H Eos % (Auto) 0.1 Baso % (Auto) 0.4 Neut # (Auto) 11.0 H Lymph # (Auto) 1.6 [place] # (Auto) 1.1 H Eos # (Auto) 0.0 Baso # (Auto) 0.1 WBC Differential . Differential Comment Auto diff final Sodium 136 Potassium 3.2 L Chloride 94 L Carbon Dioxide 26.8 Anion Gap 15 BUN 3 L Creatinine 0.68 Estimated GFR Greater than 89 Random Glucose 94 Calcium 8.7 Total Bilirubin 6.2 H AST 236 H ALT 44 Alkaline Phosphatase 345 H Ammonia Total Protein 8.9 H Albumin 2.5 L Lipase 108 Urine Color Urine Clarity Urine pH Ur Specific [place] Urine Protein Urine Glucose (UA) Urine Ketones Urine Occult Blood Urine Nitrate Urine Bilirubin Urine Ictotest Urine Urobilinogen Ur Leukocyte Esterase Urine RBC Urine WBC Ur Squamous Epith Cells Urine Bacteria Hyaline Casts Urine Mucus Micro UA Comment Urine Culture Comments Blood Type B Positive Antibody Screen Negative 04/27/18 04/27/18 04/27/18 08:00 14:40 14:40 WBC RBC Hgb 14.8 Hct 43.3 MCV MCH MCHC RDW Plt Count MPV Neut % (Auto) Lymph % (Auto) [place] % (Auto) Eos % (Auto) Baso % (Auto) Neut # (Auto) Lymph # (Auto) [place] # (Auto) Eos # (Auto) Baso # (Auto) WBC Differential Differential Comment Sodium Potassium Chloride Carbon Dioxide Anion Gap BUN Creatinine Estimated GFR Random Glucose Calcium Total Bilirubin AST ALT Alkaline Phosphatase [place] 82 H Total Protein Albumin Lipase Urine Color [place] Urine Clarity Clear Urine pH 6.0 Ur Specific [place] 1.020 Urine Protein 30 H Urine Glucose (UA) Negative Urine Ketones Negative Urine Occult Blood Negative Urine Nitrate Negative Urine Bilirubin Moderate H Urine Ictotest Positive H Urine Urobilinogen 4 or greater Ur Leukocyte Esterase Negative Urine RBC 1 Urine WBC 7 H Ur Squamous Epith Cells <1 Urine Bacteria Occasional H Hyaline Casts 10 Urine Mucus Many H Micro UA Comment Culture not ind Urine Culture Comments Culture not ind Blood Type Antibody Screen - Imaging Impressions Abdomen/Pelvis CT 04/27/18 07:13 CONCLUSION: 1. Stable CT scan of the abdomen and pelvis compared to the prior study. 2. Stable hepatomegaly with diffuse fatty infiltration and/or hepatocellular disease . 3. There is a trace of ascites adjacent to the liver and deep in the pelvis. 4. A few stable nonspecific subcentimeter para-aortic lymph nodes. Scrotum Ultrasound 04/27/18 07:40 CONCLUSION: 1. Both testicles are within normal limits. 2. There is a simple appearing left epididymal cyst in the head of the epididymis measuring 1.6 x 1.7 cm. 3. There is a moderate to large right-sided hydrocele. <Cnidy Pond - Last Filed: 04/27/18 17:09> Assessment and Plan (1) Hematemesis Status: Acute Code(s): K92.0 - Hematemesis (2) Elevated LFTs Status: Acute Code(s): R94.5 - Abnormal results of liver function studies (3) Abdominal pain Status: Acute Code(s): R10.9 - Unspecified abdominal pain (4) Abdominal swelling Status: Acute Code(s): R19.00 - Intra-abdominal and pelvic swelling, mass and lump, unspecified site (5) Constipation Status: Acute Code(s): K59.00 - Constipation, unspecified - Plan Assessment: - Hematemesis- Reports hematemesis for the past 3 days- approximately 4 episodes , has been experiencing nausea and dry heaves for much longer than that. Denies previous GIB. Has never had EGD. Heavy ETOH use- a few glasses of liquor daily. H/H stable- 15.1/43.5 - Abdominal pain and swelling- states pain for the past few months, generalized over entire abdomen, described as a grumbling pain when lying down, worse with sharp pain associated with movement and palpation. Seen at [facility] ER in January for same CT abdomen and pelvis was done which revealed nonspecific scattered subcentimeter periaortic lymph nodes and steatosis of the liver, pt was discharged home with Potassium supplements. CT abdomen and pelvis W IV contrast (04/27) Stable CT scan of the abdomen and pelvis compared to the prior study. Stable hepatomegaly with diffuse fatty infiltration and/or hepatocellular disease. There is a trace of ascites adjacent to the liver and deep in the pelvis. - Constipation- reports no BM in over a week- has tried Dulcolax at home with no relief. Does report passing gas. Denies history of constipation. Has never had colonoscopy. Of note, family history of colon cancer, father. - Elevated LFTs consistent with ETOH abuse No PT, unable to calculate DF AST-236 ALT-44 T bili-6.2 Alk [id number] Plan: EGD tomorrow Obtain consent Clear liquids today NPO after MN Protonix gtt Monitor LFTs Check coags ETOH cessation Alcohol withdraw Folic acid and thiamine Check ammonia level Lactulose- constipation Electrolyte replacement per attending further recommendations based on clinical course and findings of above Pt has been seen and examined by myself and Dr. Pond and this note is written on her behalf <Dea Godfrey - Last Filed: 04/27/18 12:14> (1) Hematemesis Status: Acute Code(s): K92.0 - Hematemesis (2) Elevated LFTs Status: Acute Code(s): R94.5 - Abnormal results of liver function studies (3) Abdominal pain Status: Acute Code(s): R10.9 - Unspecified abdominal pain (4) Abdominal swelling Status: Acute Code(s): R19.00 - Intra-abdominal and pelvic swelling, mass and lump, unspecified site (5) Constipation Status: Acute Code(s): K59.00 - Constipation, unspecified - Attending Attestation seen, examined agree with above <Cindy Pond - Last Filed: 04/27/18 17:09> <Cindy Pond - Last Filed: 04/27/18 17:09> (1) Hematemesis Qualifiers: Nausea presence: with nausea Qualified Code(s): K92.0 - Hematemesis (3) Abdominal pain Qualifiers: Abdominal location: generalized Qualified Code(s): R10.84 - Generalized abdominal pain
--- NOTE | 2018-04-27 12:47 | P.HPIM ---
History of Present Illness Service: [facility] Primary Care Physician: UNKNOWN Chief Complaint: Hematemesis History of Present Illness: Patient is a 52-year-old gentleman. He has past medical history significant for alcohol abuse presented to the emergency department here at [facility] with complaints of abdominal pain and swelling in hematemesis. Patient states he has been having abdominal pain for months with some swelling and some abdominal pain. Is also been having some nausea and vomiting of blood been having hematemesis for the past 3 days with about 4 episodes at home patient states he pretty much drinks daily Patient will be admitted gastroenterology will be consult. Medications will be adjusted - Diagnosis (1) Left hydrocele (2) Abdominal pain (3) Abdominal swelling (4) Constipation (5) Elevated LFTs (6) Hematemesis (7) Alcohol abuse - Inpatient Certification If this patient has been admitted as an Inpatient: I certify that the inpatient services were ordered in accordance with Medicare regulations governing the order. This includes certification that hospital inpatient services are reasonable and necessary and in the case of services not specified as inpatient-only under 42 CFR 419.22(n), that they are appropriately provided as inpatient services in accordance to with the 2-midnight benchmark under 43 CFR 412.3(e) Estimated Total Length of Stay (Days): 2 Plans for Post Hospital Care: Not yet determined Review of Systems All other systems reviewed negative except as stated in HPI Constitutional: Denies anorexia, Denies body ache(s) Eyes: Denies blind spots, Denies blurry vision Ears, Nose, Mouth, and Throat: Denies abnormal hearing, Denies nasal discharge, Denies nose pain, Denies ringing in the ears Cardiovascular: Denies chest pain, Denies irregular heart rhythm, Denies lightheadedness Respiratory: Denies change in phlegm color, Denies excessive phlegm production, Denies shortness of breath Gastrointestinal: Reports abdominal pain, Reports heartburn, Reports nausea, Reports vomiting, Reports vomiting blood Genitourinary: Reports scrotal swelling, Reports testicle pain Musculoskeletal: Denies abnormal walking, Denies deformity, Denies loss of height, Denies radiating pain into limb Skin/Breast: Denies bleeding lesions, Denies change in skin color, Denies hair loss Neurologic: Denies abnormal hearing, Denies abnormal walking, Denies dizziness, Denies seizure-like activity Psychiatric: Denies abnormal sleep pattern, Denies change in sex drive, Denies hearing things others do not hear, Denies lack of enjoyment, Denies seeing things others do not see Endocrine: Denies cold intolerance, Denies increased hunger, Denies rapid, pounding, or irregular heartbeat Hematologic/Lymphatic: Denies easy bleeding, Denies easy bruising Allergic/Immunologic: Denies seasonal runny nose, Denies throat swelling PMFSH - History History Provided By: Patient - Tobacco History Second Hand Smoke Exposure: No Tobacco Use In Past 30 Days: No Smoking Status: Former smoker - Alcohol History How Often Do You Have a Drink Containing Alcohol: 4 or more times a week ( EXCESSIVE ALCOHOL ABUSE) - Substance Use History Substance History: No History of Abuse - Travel History Recent Travel in the [place] Within the Last 8 Weeks: No Recent Travel Out of the Country Within the Last 8 Weeks: No - Immunization History Tetanus Immunization: Unsure Hx Influenza Vaccine This Season: No Medications and Allergies Active Medications: Active Medications Acetaminophen (Tylenol) 650 mg PO Q4H PRN PRN Reason: Temp > 100.4 Acetaminophen (Tylenol) 650 mg PO Q6H PRN PRN Reason: PAIN SCALE 1 TO 2 Al Hydroxide/Mg Hydroxide (Milk Of Magnesia Liq) 30 ml PO Q12H PRN PRN Reason: Mild Constipation Bisacodyl (Dulcolax Supp) 10 mg RECTAL DAILY PRN PRN Reason: SEVERE CONSITIPATION Octreotide Acetate 500 mcg/ (Sodium Chloride) 500.5 mls @ 25.02 mls/hr IV.CONT .Q20H1M [facility] Last Admin: 04/27/18 10:05 Dose: 25 mcg/hr, 25.02 mls/hr Pantoprazole Sodium 80 mg/ (Sodium Chloride) 100 mls @ 10 mls/hr IV.CONT CONT [facility] Last Admin: 04/27/18 10:05 Dose: 10 mls/hr Ceftriaxone Sodium 1,000 mg/ (Sodium Chloride) 100 mls @ 200 mls/hr IV.SIG Q24H [facility] Last Admin: 04/27/18 12:06 Dose: 200 mls/hr Potassium Chloride/Dextrose/Sod Cl (D5w/1/2ns + Kcl 20 Meq Inj) 1,000 mls @ 100 mls/hr IV.CONT .Q10H [facility] Last Admin: 04/27/18 12:06 Dose: 100 mls/hr Lactulose (Lactulose Liq) 30 ml PO DAILY PRN PRN Reason: SEVERE CONSITIPATION Lactulose (Lactulose Liq) 30 ml PO BID TOM Metoclopramide HCl (Reglan Inj) 5 mg IV.PUSH Q6H PRN; Protocol PRN Reason: NAUSEA OR VOMITING Morphine Sulfate (Morphine Inj) 2 mg IV.PUSH Q3H PRN PRN Reason: PAIN 3-5; IF UABLE TO TAKE PO Morphine Sulfate (Morphine Inj) 4 mg IV.PUSH Q3H PRN PRN Reason: PAIN 6-10;IF UNABLE TO TAKE PO Naloxone HCl (Narcan Inj) 0.4 mg IV.PUSH UNSCH PRN PRN Reason: SEE LABEL COMMENTS Ondansetron HCl (Zofran Odt) 4 mg PO Q6H PRN PRN Reason: NAUSEA OR VOMITING Oxycodone/Acetaminophen (Percocet 10/325 Mg) 1 tab PO Q6H PRN PRN Reason: PAIN SCALE 6 TO 10 Oxycodone/Acetaminophen (Percocet 5/325 Mg) 1 tab PO Q6H PRN PRN Reason: PAIN SCALE 3 TO 5 Pantoprazole Sodium (Protonix Inj) 40 mg IV.PUSH BID TOM Senna/Docusate Sodium (Anabel-Colace) 1 tab PO BID TOM Sennosides (Senokot) 17.2 mg PO Q12H PRN PRN Reason: Moderate Constipation Sodium Chloride (Ns Flush) 2 ml IV.FLUSH BID TOM Sodium Chloride (Ns Flush) 2 ml IV.FLUSH UNSCH PRN PRN Reason: FLUSH AFTER USING IV ACCESS Temazepam (Restoril) 15 mg PO HS PRN PRN Reason: INSOMNIA Allergies Allergy/AdvReac Type Severity Reaction Status Date / Time No Known Allergies Allergy Unverified 04/27/18 09:41 Home Medications Medication Instructions Recorded Confirmed Type No Known Home Medications 04/27/18 04/27/18 History Exam Vital signs: Vital Signs 04/27/18 05:59 04/27/18 06:42 04/27/18 09:00 Temperature 98.3 F 99.3 F 97.7 F Pulse Rate 120 H 115 H 98 H Respiratory Rate 20 20 17 Blood Pressure 125/73 120/80 124/83 Pulse Oximetry 100 100 98 04/27/18 11:03 Temperature 97.8 F Pulse Rate 96 H Respiratory Rate 16 Blood Pressure 121/78 Pulse Oximetry Intake & Output 04/26/18 04/27/18 04/27/18 18:59 06:59 18:59 Weight 72.575 kg Narrative: GENERAL: Awake alert and oriented 3 talkative and cooperative SKIN: Warm and dry. Jaundiced HEAD: Atraumatic. Normocephalic. EYES: Pupils equal and round. EOMI no injection or drainage. Some positive scleral icterus ENT: No nasal bleeding or discharge. Mucous membranes pink and moist. Tongue is midline NECK: Trachea midline. No JVD. Supple CARDIOVASCULAR: Regular rate and rhythm. S1-S2 no S3 or S4 RESPIRATORY: No accessory muscle use. Clear to auscultation. Breath sounds equal bilaterally. GASTROINTESTINAL: Abdomen soft, non-tender, distended mild tenderness. Hepatic and splenic margins not palpable. MUSCULOSKELETAL: Extremities without clubbing, cyanosis, or edema. No obvious deformities. NEUROLOGICAL: Awake and alert. No obvious cranial nerve deficits. Motor grossly within normal limits. Five out of 5 muscle strength in the arms and legs. Normal speech. PSYCHIATRIC: Appropriate mood and affect; insight and judgment normal. Results - Labs CBC & Chem 7: 04/27/18 07:11 04/27/18 07:11 Labs: Short CBC 04/27/18 Range/Units 07:11 WBC 13.8 H (4.0-11.0) th/mm3 Hgb 15.1 (13.0-17.0) gm/dL Hct 43.5 (39.0-51.0) % Plt Count 130 L (150-450) th/mm3 BMP 04/27/18 07:11 Sodium 136 Potassium 3.2 L Chloride 94 L Carbon Dioxide 26.8 BUN 3 L Creatinine 0.68 Calcium 8.7 Liver Function 04/27/18 Range/Units 07:11 Total Bilirubin 6.2 H (0.2-1.0) mg/dL AST 236 H (15-37) U/L ALT 44 (12-78) U/L Alkaline Phosphatase 345 H (45-117) U/L Albumin 2.5 L (3.4-5.0) g/dL Urine 04/27/18 Range/Units 08:00 Urine Color [place] (Yellw/Straw) Urine Clarity Clear (Clear) Urine pH 6.0 (5.0-8.5) Ur Specific [place] 1.020 (1.002-1.035) Urine Protein 30 H (Neg-Trace) mg/dL Urine Glucose (UA) Negative (Negative) mg/dL - Imaging Impressions Abdomen/Pelvis CT 04/27/18 07:13 CONCLUSION: 1. Stable CT scan of the abdomen and pelvis compared to the prior study. 2. Stable hepatomegaly with diffuse fatty infiltration and/or hepatocellular disease . 3. There is a trace of ascites adjacent to the liver and deep in the pelvis. 4. A few stable nonspecific subcentimeter para-aortic lymph nodes. Scrotum Ultrasound 04/27/18 07:40 CONCLUSION: 1. Both testicles are within normal limits. 2. There is a simple appearing left epididymal cyst in the head of the epididymis measuring 1.6 x 1.7 cm. 3. There is a moderate to large right-sided hydrocele. Caprini VTE Risk Assessment Caprini VTE Risk Assessment: No/Low Risk (score <= 1) VTE Pharmacological Exception Reason: High risk for bleeding Caprini Risk Assessment Model: Point Value = 1 Point Value = 2 Point Value = 3 Point Value = 5 Age 41-60 Minor surgery BMI > 25 kg/m2 Swollen legs Varicose veins or History of unexplained or recurrent spontaneous Oral contraceptives or hormone replacement Sepsis (< 1 month) Serious lung disease, including pneumonia (< 1 month) Abnormal pulmonary function Acute myocardial infarction Congestive heart failure (< 1 month) History of inflammatory bowel disease Medical patient at bed rest Age 61-74 Arthroscopic surgery Major open surgery (> 45 min) Laparoscopic surgery (> 45 min) Malignancy Confined to bed (> 72 hours) Immobilizing plaster cast Central venous access Age >= 75 History of VTE Family history of VTE Factor V Leiden Prothrombin [id number] Lupus anticoagulant Anticardiolipin antibodies Elevated serum homocysteine Heparin-induced thrombocytopenia Other congenital or acquired thrombophilia Stroke (< 1 month) Elective arthroplasty Hip, pelvis, or leg fracture Acute spinal cord injury (< 1 month) Prophylaxis Regimen: Total Risk Factor Score Risk Level Prophylaxis Regimen 0-1 Low Early ambulation 2 Moderate Order ONE of the following: *Sequential Compression Device (SCD) *Heparin 5000 units SQ BID 3-4 Higher Order ONE of the following medications: *Heparin 5000 units SQ TID *Enoxaparin/Lovenox 40 mg SQ daily (WT < 150 kg, CrCl > 30 mL/min) *Enoxaparin/Lovenox 30 mg SQ daily (WT < 150 kg, CrCl > 10-29 mL/min) *Enoxaparin/Lovenox 30 mg SQ BID (WT < 150 kg, CrCl > 30 mL/min) AND/OR *Sequential Compression Device (SCD) 5 or more Highest Order ONE of the following medications: *Heparin 5000 units SQ TID (Preferred with Epidurals) *Enoxaparin/Lovenox 40 mg SQ daily (WT < 150 kg, CrCl > 30 mL/min) *Enoxaparin/Lovenox 30 mg SQ daily (WT < 150 kg, CrCl > 10-29 mL/min) *Enoxaparin/Lovenox 30 mg SQ BID (WT < 150 kg, CrCl > 30 mL/min) AND *Sequential Compression Device (SCD) Assessment and Plan - Assessment (1) Left hydrocele Code(s): N43.3 - Hydrocele, unspecified Status: Acute (2) Abdominal pain Code(s): R10.9 - Unspecified abdominal pain Status: Acute (3) Abdominal swelling Code(s): R19.00 - Intra-abdominal and pelvic swelling, mass and lump, unspecified site Status: Acute (4) Constipation Code(s): K59.00 - Constipation, unspecified Status: Acute (5) Elevated LFTs Code(s): R94.5 - Abnormal results of liver function studies Status: Acute (6) Hematemesis Code(s): K92.0 - Hematemesis Status: Acute (7) Alcohol abuse Code(s): F10.10 - Alcohol abuse, uncomplicated Status: Acute - Plan Patient is a 52-year-old gentleman who presented with hematemesis for the past 3-4 days Hematemesis -Consult gastroenterology -Alcohol and smoking cessation -Protonix -Multivitamin, thiamine, folic acid -Recommend alcohol cessation Abdominal pain rule out upper GI pathology -We will need EGD -Started on clear liquid diet by gastroenterology Constipation medication started for this Elevated LFTs consistent with alcohol abuse -Recommended alcohol cessation -Multivitamin, thiamine, folic acid Hypokalemia will replace Elevated ammonia level -Started on lactulose Left hydrocele will monitor A.m. labs GI prophylaxis DVT prophylaxis with SCDs and CONNIE chanel Case management consult and physical therapy and Occupational Therapy counts Pain control as needed for the abdominal pain Code Status: Full code Discussed Condition With: RN and patient and emergency room physician and gastroenterology Discharge Planning: Pending clearance by GI and improvement in left
[2018-04-27] MEDS ORDERED: Potassium Chloride 25 MEQ Effervescent Tablet PO ONE ×2 (14:00→15:00)
[2018-04-27 14:48] LABS: Hematocrit 43.3 % (39.0-51.0); Hemoglobin 14.8 gm/dL (13.0-17.0)
[2018-04-27] MEDS ORDERED: Sod Phosphate/Sod Biphosphate (Adult) Enema 133 ML Bottle RECTAL ONE (17:10)
[2018-04-27] MEDS: oxyCODONE/Acetaminophen 10/325 Tablet PO PRN (18:48)
[2018-04-27] MEDS: Senna/Docusate Sodium 8.6/50 MG Tablet PO SCH (20:42)
[2018-04-27] MEDS: Pantoprazole Inj 40 MG Vial IV.PUSH SCH (20:42)
[2018-04-27 22:30] LABS: Hemoglobin 13.6 gm/dL (13.0-17.0)
[2018-04-28] MEDS: Pantoprazole Inj 80 MG in Sodium Chlor 0.9% Inj 100 ML IV.CONT SCH (04:50)
[2018-04-28] MEDS: oxyCODONE/Acetaminophen 10/325 Tablet PO PRN ×3 (05:02→18:41)
[2018-04-28] MEDS ORDERED: Chlorhexidine Gluconate 2% 1 Pack (2 Cloths) TOPICAL SCH (06:30)
[2018-04-28] MEDS ORDERED: Metoprolol Tartrate 25 MG Tablet PO SCH (06:30)
[2018-04-28] MEDS ORDERED: Sodium Chlor 0.9% Inj 500 ML IV.SIG SCH (07:00)
[2018-04-28 07:17] LABS: INR 1.4 Ratio; Prothrombin Time 13.9 sec (9.8-11.6)
[2018-04-28 07:21] LABS: Baso % (Auto) 0.4 % (0.0-2.0); Eos # (Auto) 0.1 th/mm3 (0.0-0.4); Eos % (Auto) 0.6 % (0.0-4.0); Hematocrit 37.9 % (39.0-51.0); Hemoglobin 12.9 gm/dL (13.0-17.0); Lymph # (Auto) 0.9 th/mm3 (1.0-4.8); Lymph % (Auto) 8.7 % (9.0-44.0); Mean Corpuscular HGB Conc 34.2 % (32.0-36.0); Mean Corpuscular Hemoglobin 38.8 pg (27.0-34.0); Mean Corpuscular Volume 113.5 fL (80.0-100.0); Mean Platelet Volume 8.7 fL (7.0-11.0); Mono # (Auto) 0.8 th/mm3 (0.0-0.9); Mono % (Auto) 8.3 % (0.0-8.0); Neut # (Auto) 8.1 th/mm3 (1.8-7.7); Platelet Count 98 th/mm3 (150-450); Red Blood Count 3.34 mil/mm3 (4.50-5.90); Red Cell Distribution Width 13.6 % (11.6-17.2); White Blood Count 9.9 th/mm3 (4.0-11.0)
[2018-04-28 07:43] LABS: Alanine Aminotransferase 35 U/L (12-78); Anion Gap 11 meq/L (5-15); Aspartate Aminotransferase 157 U/L (15-37); Blood Urea Nitrogen 4 mg/dL (7-18); Calcium 7.8 mg/dL (8.5-10.1); Carbon Dioxide 26.8 meq/L (21.0-32.0); Chloride 100 meq/L (98-107); Glomerular Filtration Rate Greater Than 89 mL/min (>89); Glucose,Random 139 mg/dL (74-106); Lipase 111 U/L (73-393); Magnesium 1.7 mg/dL (1.5-2.5); Phosphorus 2.4 mg/dL (2.5-4.9); Potassium 3.3 meq/L (3.5-5.1); Sodium 138 meq/L (136-145)
[2018-04-28 07:44] LABS: Alkaline Phosphatase 264 U/L (45-117); Free T4 (Free Thyroxine) 1.24 ng/dL (0.76-1.46); Thyroid Stimulating Hormone 0.426 uIU/mL (0.358-3.740); Total Protein 7.4 g/dL (6.4-8.2)
[2018-04-28 08:38] LABS: Hepatitis A IgM Antibody Nonreactive (Nonreactive)
[2018-04-28 08:39] LABS: Hepatitits B Surface Antigen Nonreactive (Nonreactive)
[2018-04-28] MEDS: KCL 20 mEq/D5W/NaCl 0.45% Inj 1,000 ML IV.CONT SCH (10:23)
[2018-04-28] MEDS: Senna/Docusate Sodium 8.6/50 MG Tablet PO SCH ×2 (10:26→22:51)
[2018-04-28] MEDS ORDERED: Lidocaine PF 1% Inj 5 ML Syringe INFILTRATN ONE (12:00)
[2018-04-28 12:44] LABS: Hemoglobin A1c 4.8 % (4.3-6.0)
--- NOTE | 2018-04-28 13:16 | GIPROC ---
[facility] [address] [facility]. [facility], [address] EGD PROCEDURE REPORT EXAM DATE: 04/28/2018 PATIENT NAME: Tree Thompson MR #: [id number] BIRTHDATE: 1965 ATTENDING: Cindy Pond MD ORDER #: [id number] W[employer]AFETY TEACHER: Brooks Martinez and Fabiola Narayanan STATUS: inpatient INDICATIONS: The patient is a 52 yr old male here for an EGD due to nausea, vomiting, gi bleeding PROCEDURE PERFORMED: EGD w/ biopsy MEDICATIONS: None and Per Anesthesia. TOPICAL ANESTHETIC: none CONSENT: The patient understands the risks and benefits of the procedure and understands that these risks include, but are not limited to: sedation, allergic reaction, infection, perforation and/or bleeding. Alternative means of evaluation and treatment include, among others: physical exam, x-rays, and/or surgical intervention. The patient elects to proceed with this endoscopic procedure. medical equipment was checked for proper function. Hand hygiene and appropriate measures for infection prevention was taken. After the risks, benefits and alternatives of the procedure were thoroughly explained, Informed consent was verified, confirmed and timeout was successfully executed by the treatment team. The patient was anesthetized with topical anesthesia and the Pentax EG-[id number] endoscope was introduced through the mouth and advanced to the second portion of the duodenum. Retroflexed views revealed a hiatal hernia The gastroscope was then slowly withdrawn and removed. Esophageal varices grade 1 portal gastropathy-biopsy. ADVERSE EVENTS: There were no complications. IMPRESSIONS: 1. Esophageal varices grade 1 portal gastropathy-biopsy 2. Retroflexed views revealed a hiatal hernia RECOMMENDATIONS: 1. Await biopsy results. Biopsy results will not be ready for 7-10 days. If you don't hear from us in two weeks, call our office for biopsy results. 2. Anti-reflux regimen 3. Clear liquid diet sbft with gastrografin colonoscopy Tuesday egd banding in 6 weeks avoid etoh PATIENT CONDITION: stable DISPOSITION: Inpatient REPEAT EXAM: Return 6 weeks EGD Cindy Pond MD eSigned: Cindy Pond MD 04/28/2018 1:16 PM cc: PATIENT NAME: Tree Thompson MR#: [id number]
--- NOTE | 2018-04-28 13:59 | ECG ---
Date Performed: 04/28/2018 Time Performed: 10:48:25 PTAGE: 52 years EKG: Sinus rhythm PROLONGED QT INTERVAL ABNORMAL ECG Compared to prior electrocardiogram, QT interval seems to have in creased. PREVIOUS TRACING : 06/10/2004 06.58 DOCTOR: Tim Rae Interpretating Date/Time 04/28/2018 13:57:49
[2018-04-28] MEDS ORDERED: Promethazine 25 MG Supp RECTAL PRN (14:42)
--- NOTE | 2018-04-28 17:14 | FL ---
EXAM DATE: 04/28/2018 5:08 PM EDT AGE/SEX: 52 years / Male INDICATIONS: Constipation, nausea, vomiting, abdominal pain. CLINICAL DATA: This is the patient's subsequent encounter. Patient reports that signs and symptoms h ave been present for 2 weeks and indicates a pain score of 7/10. MEDICAL/SURGICAL HISTORY: None. None. COMPARISON: No prior exams available for comparison. FLUORO TIME: .6 IMAGE COUNT: 23 CONTRAST: FINDINGS: Preliminary film is unremarkable. The stomach is grossly unremarkable. Examination of the small bowel demonstrates normal mucosal pattern involving the jejunum and ileum. There is no evidence of mass or obstruction. No intraluminal filling defects are identified. Small bowel transit time is normal at 150 minutes. Fluoroscopy of the abdomen and terminal ileum demonstra ryan no abnormality. CONCLUSION: Unremarkable small bowel follow-through. Electronically signed by: Baltazar Lipscomb MD 04/28/2018 5:13 PM EDT
--- NOTE | 2018-04-28 17:23 | P.PNIM ---
Subjective Interval history: Patient states that he is extremely nauseated. Would only want to try clear liquids. Abdominal pain better. Has not vomited any blood today. Physical Exam Vital signs: Vital Signs 04/27/18 20:00 04/28/18 00:00 04/28/18 01:00 Temperature 97.9 F 97.4 F L Pulse Rate 92 H 87 Respiratory Rate 19 18 15 Blood Pressure 130/77 112/75 Pulse Oximetry 95 93 L 04/28/18 04:00 04/28/18 08:00 04/28/18 11:14 Temperature 98.1 F 97.8 F Pulse Rate 85 81 Respiratory Rate 18 17 Blood Pressure 120/80 124/78 Pulse Oximetry 94 L 94 L 95 04/28/18 11:15 04/28/18 13:18 04/28/18 13:30 Temperature 97.8 F 97.8 F Pulse Rate 76 78 78 Respiratory Rate 20 18 18 Blood Pressure 126/80 108/80 122/77 Pulse Oximetry 93 L 94 L 94 L Intake & Output 04/27/18 04/28/18 04/28/18 18:59 06:59 18:59 Intake Total 200 / 200 1100 / 1100 Balance 200 / 200 1100 / 1100 Intake: IV 200 / 200 1100 / 1100 D5W/1/2NS + KCL 20 mEq Inj 1, 1000 / 1000 000 ML @ 100 mls/hr IV.CONT . Q10H TOM Rx#:[id number] Protonix Inj 80 MG In NS Inj 100 / 100 100 / 100 100 ML @ 10 mls/hr IV.CONT CONT TOM Rx#:[id number] Rocephin Inj 1,000 MG In NS Inj 100 / 100 100 ML @ 200 mls/hr IV.SIG Q24H TOM Rx#:[id number] Other: Date of Last Bowel Movement 04/27/18 Narrative: GENERAL: This is a well-nourished, well-developed patient, in no apparent distress. CARDIOVASCULAR: Regular rate and rhythm without murmurs, gallops, or rubs. RESPIRATORY: Clear to auscultation. Breath sounds equal bilaterally. No wheezes , rales, or rhonchi. GASTROINTESTINAL: Abdomen soft, non-tender, nondistended. Normal active bowel sounds MUSCULOSKELETAL: Extremities without clubbing, cyanosis, or edema. NEURO: Alert & Oriented x4 to person, place, time, situation. Moves all ext x4 Results - Labs CBC & Chem 7: 04/28/18 06:30 04/28/18 06:57 Laboratory Results - last 24 hr 04/27/18 04/28/18 04/28/18 20:33 06:30 06:30 WBC 9.9 RBC 3.34 L Hgb 13.6 12.9 L Hct 40.0 37.9 L MCV 113.5 H MCH 38.8 H MCHC 34.2 RDW 13.6 Plt Count 98 L MPV 8.7 Prelim Diff (Auto) Slide review pending Neut % (Auto) 82.0 H Lymph % (Auto) 8.7 L [place] % (Auto) 8.3 H Eos % (Auto) 0.6 Baso % (Auto) 0.4 Neut # (Auto) 8.1 H Lymph # (Auto) 0.9 L [place] # (Auto) 0.8 Eos # (Auto) 0.1 Baso # (Auto) 0.0 WBC Differential . Diff Scan Auto diff confirmed Differential Comment . PT 13.9 H INR 1.4 Sodium Potassium Chloride Carbon Dioxide Anion Gap BUN Creatinine Estimated GFR Random Glucose Hemoglobin A1c Calcium Phosphorus Magnesium Total Bilirubin AST ALT Alkaline Phosphatase Ammonia Total Protein Albumin Lipase TSH Free T4 Hepatitis A IgM Ab Hep Bs Antigen Hep B Core IgM Ab Hep C IgG Ab 04/28/18 04/28/18 04/28/18 06:30 06:30 06:30 WBC RBC Hgb Hct MCV MCH MCHC RDW Plt Count MPV Prelim Diff (Auto) Neut % (Auto) Lymph % (Auto) [place] % (Auto) Eos % (Auto) Baso % (Auto) Neut # (Auto) Lymph # (Auto) [place] # (Auto) Eos # (Auto) Baso # (Auto) WBC Differential Diff Scan Differential Comment PT INR Sodium Potassium Chloride Carbon Dioxide Anion Gap BUN Creatinine Estimated GFR Random Glucose Hemoglobin A1c 4.8 Calcium Phosphorus Magnesium Total Bilirubin AST ALT Alkaline Phosphatase Ammonia 107 H Total Protein Albumin Lipase TSH Free T4 Hepatitis A IgM Ab Nonreactive Hep Bs Antigen Nonreactive Hep B Core IgM Ab Reactive H Hep C IgG Ab Nonreactive 04/28/18 06:57 WBC RBC Hgb Hct MCV MCH MCHC RDW Plt Count MPV Prelim Diff (Auto) Neut % (Auto) Lymph % (Auto) [place] % (Auto) Eos % (Auto) Baso % (Auto) Neut # (Auto) Lymph # (Auto) [place] # (Auto) Eos # (Auto) Baso # (Auto) WBC Differential Diff Scan Differential Comment PT INR Sodium 138 Potassium 3.3 L Chloride 100 Carbon Dioxide 26.8 Anion Gap 11 BUN 4 L Creatinine 0.65 Estimated GFR Greater than 89 Random Glucose 139 H Hemoglobin A1c Calcium 7.8 L D Phosphorus 2.4 L Magnesium 1.7 Total Bilirubin 5.0 H AST 157 H ALT 35 Alkaline Phosphatase 264 H Ammonia Total Protein 7.4 D Albumin 2.0 L Lipase 111 TSH 0.426 Free T4 1.24 Hepatitis A IgM Ab Hep Bs Antigen Hep B Core IgM Ab Hep C IgG Ab - Imaging Impressions Small Bowel X-Ray 04/28/18 00:00 CONCLUSION: Unremarkable small bowel follow-through. Assessment and Plan - Assessment (1) Abdominal pain Code(s): R10.9 - Unspecified abdominal pain Status: Acute (2) Abdominal swelling Code(s): R19.00 - Intra-abdominal and pelvic swelling, mass and lump, unspecified site Status: Acute (3) Constipation Code(s): K59.00 - Constipation, unspecified Status: Acute (4) Elevated LFTs Code(s): R94.5 - Abnormal results of liver function studies Status: Acute (5) Hematemesis Code(s): K92.0 - Hematemesis Status: Acute (6) Alcohol abuse Code(s): F10.10 - Alcohol abuse, uncomplicated Status: Acute (7) Esophageal varices Code(s): I85.00 - Esophageal varices without bleeding Status: Acute - Plan Patient is a 52-year-old gentleman who presented with hematemesis for the past 3-4 days Hematemesis, GI bleed -Appreciate GI recommendations and intervention, status post EGD with findings of esophageal varices and portal gastropathy with status post biopsy. -Alcohol and smoking cessation counseling performed -Protonix -Multivitamin, thiamine, folic acid -Recommend alcohol cessation Abdominal pain rule out upper GI pathology -Status post EGD and schedule for colonoscopy on Tuesday. -Started on clear liquid diet by gastroenterology Small bowel follow-through also performed and pending results. Elevated LFTs consistent with alcohol abuse -Recommended alcohol cessation -Multivitamin, thiamine, folic acid Hypokalemia will replace Elevated ammonia level -Started on lactulose DVT prophylaxis with SCDs Discharge Planning: Home when cleared by GI. (1) Abdominal pain Qualifiers: Abdominal location: generalized Qualified Code(s): R10.84 - Generalized abdominal pain (5) Hematemesis Qualifiers: Nausea presence: with nausea Qualified Code(s): K92.0 - Hematemesis
--- NOTE | 2018-04-28 22:50 | P.PN ---
Subjective Interval history: not seen Physical Exam Vital signs: Vital Signs 04/28/18 00:00 04/28/18 01:00 04/28/18 04:00 Temperature 97.4 F L 98.1 F Pulse Rate 87 85 Respiratory Rate 18 15 18 Blood Pressure 112/75 120/80 Pulse Oximetry 93 L 94 L 04/28/18 08:00 04/28/18 11:14 04/28/18 11:15 Temperature 97.8 F Pulse Rate 81 76 Respiratory Rate 17 20 Blood Pressure 124/78 126/80 Pulse Oximetry 94 L 95 93 L 04/28/18 13:18 04/28/18 13:30 04/28/18 17:24 Temperature 97.8 F 97.8 F 98.2 F Pulse Rate 78 78 76 Respiratory Rate 18 18 18 Blood Pressure 108/80 122/77 121/78 Pulse Oximetry 94 L 94 L 95 04/28/18 20:00 Temperature 97.6 F Pulse Rate 77 Respiratory Rate 18 Blood Pressure 123/69 Pulse Oximetry 95 Intake & Output 04/28/18 04/28/18 04/29/18 06:59 18:59 06:59 Intake Total 1100 / 1100 Balance 1100 / 1100 Intake: IV 1100 / 1100 D5W/1/2NS + KCL 20 mEq Inj 1, 1000 / 1000 000 ML @ 100 mls/hr IV.CONT . Q10H TOM Rx#:[id number] Protonix Inj 80 MG In NS Inj 100 / 100 100 ML @ 10 mls/hr IV.CONT CONT TOM Rx#:[id number] Other: # Voids 4 Date of Last Bowel Movement 04/27/18 Results - Labs CBC & Chem 7: 04/28/18 06:30 04/28/18 06:57 Laboratory Results - last 24 hr 04/28/18 04/28/18 04/28/18 06:30 06:30 06:30 WBC 9.9 RBC 3.34 L Hgb 12.9 L Hct 37.9 L MCV 113.5 H MCH 38.8 H MCHC 34.2 RDW 13.6 Plt Count 98 L MPV 8.7 Prelim Diff (Auto) Slide review pending Neut % (Auto) 82.0 H Lymph % (Auto) 8.7 L [place] % (Auto) 8.3 H Eos % (Auto) 0.6 Baso % (Auto) 0.4 Neut # (Auto) 8.1 H Lymph # (Auto) 0.9 L [place] # (Auto) 0.8 Eos # (Auto) 0.1 Baso # (Auto) 0.0 WBC Differential . Diff Scan Auto diff confirmed Differential Comment . PT 13.9 H INR 1.4 Sodium Potassium Chloride Carbon Dioxide Anion Gap BUN Creatinine Estimated GFR Random Glucose Hemoglobin A1c 4.8 Calcium Phosphorus Magnesium Total Bilirubin AST ALT Alkaline Phosphatase Ammonia Total Protein Albumin Lipase TSH Free T4 Hepatitis A IgM Ab Hep Bs Antigen Hep B Core IgM Ab Hep C IgG Ab 04/28/18 04/28/18 04/28/18 06:30 06:30 06:57 WBC RBC Hgb Hct MCV MCH MCHC RDW Plt Count MPV Prelim Diff (Auto) Neut % (Auto) Lymph % (Auto) [place] % (Auto) Eos % (Auto) Baso % (Auto) Neut # (Auto) Lymph # (Auto) [place] # (Auto) Eos # (Auto) Baso # (Auto) WBC Differential Diff Scan Differential Comment PT INR Sodium 138 Potassium 3.3 L Chloride 100 Carbon Dioxide 26.8 Anion Gap 11 BUN 4 L Creatinine 0.65 Estimated GFR Greater than 89 Random Glucose 139 H Hemoglobin A1c Calcium 7.8 L D Phosphorus 2.4 L Magnesium 1.7 Total Bilirubin 5.0 H AST 157 H ALT 35 Alkaline Phosphatase 264 H Ammonia 107 H Total Protein 7.4 D Albumin 2.0 L Lipase 111 TSH 0.426 Free T4 1.24 Hepatitis A IgM Ab Nonreactive Hep Bs Antigen Nonreactive Hep B Core IgM Ab Reactive H Hep C IgG Ab Nonreactive - Imaging Impressions Small Bowel X-Ray 04/28/18 00:00 CONCLUSION: Unremarkable small bowel follow-through. - Procedures egd Assessment and Plan - Assessment (1) Abdominal pain Code(s): R10.9 - Unspecified abdominal pain Status: Acute (2) Abdominal swelling Code(s): R19.00 - Intra-abdominal and pelvic swelling, mass and lump, unspecified site Status: Acute (3) Constipation Code(s): K59.00 - Constipation, unspecified Status: Acute (4) Elevated LFTs Code(s): R94.5 - Abnormal results of liver function studies Status: Acute (5) Hematemesis Code(s): K92.0 - Hematemesis Status: Acute (6) Alcohol abuse Code(s): F10.10 - Alcohol abuse, uncomplicated Status: Acute (7) Esophageal varices Code(s): I85.00 - Esophageal varices without bleeding Status: Acute - Plan Patient is a 52-year-old gentleman who presented with hematemesis for the past 3-4 days Hematemesis, GI bleed -Appreciate GI recommendations and intervention, status post EGD with findings of esophageal varices and portal gastropathy with status post biopsy. -Alcohol and smoking cessation counseling performed -Protonix and sandostatin drip per GI -Multivitamin, thiamine, folic acid -Recommend alcohol cessation Abdominal pain rule out upper GI pathology -Status post EGD and schedule for colonoscopy on Tuesday. -Started on clear liquid diet by gastroenterology Small bowel follow-through unremarkable Elevated LFTs consistent with alcohol abuse -Recommended alcohol cessation -Multivitamin, thiamine, folic acid Hypokalemia will replace Elevated ammonia level -Started on lactulose DVT prophylaxis with SCDs (1) Abdominal pain Qualifiers: Abdominal location: generalized Qualified Code(s): R10.84 - Generalized abdominal pain (5) Hematemesis Qualifiers: Nausea presence: with nausea Qualified Code(s): K92.0 - Hematemesis
[2018-04-28] MEDS: Pantoprazole Inj 40 MG Vial IV.PUSH SCH (22:52)
[2018-04-29] MEDS: Temazepam 15 MG Capsule PO PRN ×2 (00:17→22:23)
[2018-04-29 08:31] LABS: Baso # (Auto) 0.1 th/mm3 (0.0-0.2); Baso % (Auto) 0.8 % (0.0-2.0); Eos # (Auto) 0.1 th/mm3 (0.0-0.4); Eos % (Auto) 1.3 % (0.0-4.0); Hematocrit 38.4 % (39.0-51.0); Hemoglobin 13.1 gm/dL (13.0-17.0); Lymph % (Auto) 11.9 % (9.0-44.0); Mean Corpuscular Hemoglobin 38.5 pg (27.0-34.0); Mean Corpuscular Volume 113.1 fL (80.0-100.0); Mean Platelet Volume 8.5 fL (7.0-11.0); Mono # (Auto) 0.6 th/mm3 (0.0-0.9); Mono % (Auto) 8.1 % (0.0-8.0); Neut # (Auto) 6.2 th/mm3 (1.8-7.7); Neut % (Auto) 77.9 % (16.0-70.0); Platelet Count 100 th/mm3 (150-450); Red Cell Distribution Width 13.7 % (11.6-17.2)
[2018-04-29] MEDS ORDERED: Folic Acid 1 MG Tablet PO SCH (09:00)
[2018-04-29 09:06] LABS: Alanine Aminotransferase 34 U/L (12-78)
[2018-04-29 09:08] LABS: Alkaline Phosphatase 224 U/L (45-117); Anion Gap 8 meq/L (5-15); Aspartate Aminotransferase 163 U/L (15-37); Blood Urea Nitrogen 3 mg/dL (7-18); Calcium 8.1 mg/dL (8.5-10.1); Carbon Dioxide 30.1 meq/L (21.0-32.0); Chloride 102 meq/L (98-107); Glomerular Filtration Rate Greater Than 89 mL/min (>89); Glucose,Random 83 mg/dL (74-106); Magnesium 1.8 mg/dL (1.5-2.5); Potassium 3.2 meq/L (3.5-5.1); Sodium 140 meq/L (136-145); Total Protein 7.2 g/dL (6.4-8.2)
[2018-04-29] MEDS ORDERED: Potassium Chloride 25 MEQ Effervescent Tablet PO ONE (09:31)
[2018-04-29] MEDS: Senna/Docusate Sodium 8.6/50 MG Tablet PO SCH ×2 (09:34→21:06)
[2018-04-29] MEDS: oxyCODONE/Acetaminophen 10/325 Tablet PO PRN ×4 (09:35→21:08)
--- NOTE | 2018-04-29 09:41 | P.PNIM ---
Subjective Interval history: RN at bedside. Feeling better today. Nausea improved and tolerating clear liquids for the first time this admission for breakfast today. He wants to see if he can tolerate more solid food. Still with some abdominal discomfort, but much improved. Had a bowel movement last night with some formed stool. Last drank 1 day prior to admission. Denies any scrotal pain. Physical Exam Vital signs: Vital Signs 04/28/18 11:14 04/28/18 11:15 04/28/18 13:18 Temperature 97.8 F Pulse Rate 76 78 Respiratory Rate 20 18 Blood Pressure 126/80 108/80 Pulse Oximetry 95 93 L 94 L 04/28/18 13:30 04/28/18 17:24 04/28/18 20:00 Temperature 97.8 F 98.2 F 97.6 F Pulse Rate 78 76 77 Respiratory Rate 18 18 18 Blood Pressure 122/77 121/78 123/69 Pulse Oximetry 94 L 95 95 04/28/18 22:50 04/29/18 00:00 04/29/18 01:00 Temperature 97.9 F Pulse Rate 74 Respiratory Rate 18 15 Blood Pressure 117/76 Pulse Oximetry 93 L 93 L 04/29/18 04:00 Temperature 98.0 F Pulse Rate 75 Respiratory Rate 18 Blood Pressure 123/80 Pulse Oximetry 93 L Intake & Output 04/28/18 04/29/18 04/29/18 18:59 06:59 18:59 Weight 159 lb 13.362 oz Other: # Voids 4 4 Date of Last Bowel Movement 04/27/18 04/28/18 Narrative: GENERAL: Well-developed well-nourished. In no acute distress. SKIN: Warm and dry. No lesions noted. HEENT: Normocephalic. Pupils equal and round. Mucous membranes pink and moist. CARDIOVASCULAR: Regular rate and rhythm. No murmur appreciated. RESPIRATORY: No accessory muscle use. Clear to auscultation. Breath sounds equal bilaterally. GASTROINTESTINAL: Abdomen tense, mildly tender diffusely but especially in the lower abdomen, mild distension. Bowel sounds x4. MUSCULOSKELETAL: No obvious deformities. No clubbing or cyanosis. No edema. NEUROLOGICAL: Awake and alert. No focal neurological deficits. Moves upper and lower extremities spontaneously. Normal speech. PSYCHIATRIC: Appropriate mood and affect; insight and judgment normal. Results - Labs CBC & Chem 7: 04/29/18 07:47 04/29/18 07:47 Laboratory Results - last 24 hr 04/28/18 04/29/18 04/29/18 06:30 07:47 07:47 WBC 8.0 RBC 3.40 L Hgb 13.1 Hct 38.4 L MCV 113.1 H MCH 38.5 H MCHC 34.0 RDW 13.7 Plt Count 100 L MPV 8.5 Neut % (Auto) 77.9 H Lymph % (Auto) 11.9 [place] % (Auto) 8.1 H Eos % (Auto) 1.3 Baso % (Auto) 0.8 Neut # (Auto) 6.2 Lymph # (Auto) 1.0 [place] # (Auto) 0.6 Eos # (Auto) 0.1 Baso # (Auto) 0.1 WBC Differential . Differential Comment Auto diff final Sodium 140 Potassium 3.2 L Chloride 102 Carbon Dioxide 30.1 Anion Gap 8 BUN 3 L Creatinine 0.65 Estimated GFR Greater than 89 Random Glucose 83 Hemoglobin A1c 4.8 Calcium 8.1 L Magnesium 1.8 Total Bilirubin 3.6 H AST 163 H ALT 34 Alkaline Phosphatase 224 H Total Protein 7.2 Albumin 2.0 L - Imaging Impressions Small Bowel X-Ray 04/28/18 00:00 CONCLUSION: Unremarkable small bowel follow-through. - Procedures egd Assessment and Plan - Plan Patient is a 52-year-old gentleman who presented with hematemesis x3- 4 days Hematemesis, GI bleed -Appreciate GI recommendations and intervention, status post EGD with findings of esophageal varices and portal gastropathy with status post biopsy. Planning on colonoscopy on Tuesday. -Alcohol cessation counseling again performed -Protonix. Counseled on gastritis diet. -Recommend alcohol cessation -IVF -Advance diet as tolerated for now Abdominal pain rule out upper GI pathology -Status post EGD and schedule for colonoscopy on Tuesday. -Started on clear liquid diet by gastroenterology Small bowel follow-through also performed and pending results. Elevated LFTs consistent with alcohol abuse (no evidence of withdrawal) Abdominal CT with hepatomegaly with diffuse fatty infiltration and/or hepatocellular disease. -Strongly recommended alcohol cessation -Multivitamin, thiamine, folic acid -Started on lactulose for elevated ammonia level. -Ascites noted on CT, on ceftriaxone for SBP prophylaxis Hypokalemia: -will replace Moderate to large varicocele: Currently asymptomatic -Recommended outpatient urology follow-up DVT prophylaxis with SCDs Discharge Planning: GI planning on colonoscopy on Tuesday
--- NOTE | 2018-04-29 14:01 | P.PNGI ---
Subjective Interval history: Patient is resting in the bed does note some nausea and vomiting this past p.m. but none since Abdomen taut with some mild distention Patient has been transitioned to a cardiac diet today if no nausea vomiting Afebrile Current hemoglobin 13.1, bilirubin 3.6, AST 163 ALT 34 Physical Exam Vital signs: Vital Signs 04/28/18 17:24 04/28/18 20:00 04/28/18 22:50 Temperature 98.2 F 97.6 F Pulse Rate 76 77 Respiratory Rate 18 18 Blood Pressure 121/78 123/69 Pulse Oximetry 95 95 93 L 04/29/18 00:00 04/29/18 01:00 04/29/18 04:00 Temperature 97.9 F 98.0 F Pulse Rate 74 75 Respiratory Rate 18 15 18 Blood Pressure 117/76 123/80 Pulse Oximetry 93 L 93 L Intake & Output 04/28/18 04/29/18 04/29/18 18:59 06:59 18:59 Weight 72.5 kg Other: # Voids 4 4 Date of Last Bowel Movement 04/27/18 04/28/18 - Constitutional mild distress - Routine HEENT Exam Head: Present: normocephalic, atraumatic Eye: Present: EOMI ENT: Present: mucous membranes moist - Routine Neck Exam Present: supple - Routine Respiratory Exam Present: CTA bilaterally (No obvious rhonchi or wheezing) - Routine Cardiovascular Exam Present: RRR - Routine Abdominal Exam Present: normoactive bowel sounds (taut, with some tympany, bloating), distended (Mild) - Routine Extremities Exam Present: full ROM, pulses intact - Routine Skin Exam Present: intact - Routine Neurological Exam Present: alert, oriented X3 - Detailed Neurological Exam: Coma Scale Verbal Response: Oriented - Routine Psychiatric Exam Present: normal affect, anxious (Mild) Results - Labs CBC & Chem 7: 04/29/18 07:47 04/29/18 07:47 Laboratory Results - last 24 hr 04/29/18 04/29/18 07:47 07:47 WBC 8.0 RBC 3.40 L Hgb 13.1 Hct 38.4 L MCV 113.1 H MCH 38.5 H MCHC 34.0 RDW 13.7 Plt Count 100 L MPV 8.5 Neut % (Auto) 77.9 H Lymph % (Auto) 11.9 [place] % (Auto) 8.1 H Eos % (Auto) 1.3 Baso % (Auto) 0.8 Neut # (Auto) 6.2 Lymph # (Auto) 1.0 [place] # (Auto) 0.6 Eos # (Auto) 0.1 Baso # (Auto) 0.1 WBC Differential . Differential Comment Auto diff final Sodium 140 Potassium 3.2 L Chloride 102 Carbon Dioxide 30.1 Anion Gap 8 BUN 3 L Creatinine 0.65 Estimated GFR Greater than 89 Random Glucose 83 Calcium 8.1 L Magnesium 1.8 Total Bilirubin 3.6 H AST 163 H ALT 34 Alkaline Phosphatase 224 H Total Protein 7.2 Albumin 2.0 L - Imaging Impressions Small Bowel X-Ray 04/28/18 00:00 CONCLUSION: Unremarkable small bowel follow-through. - Procedures egd Assessment and Plan (1) Hematemesis Status: Acute Code(s): K92.0 - Hematemesis (2) Elevated LFTs Status: Acute Code(s): R94.5 - Abnormal results of liver function studies (3) Abdominal pain Status: Acute Code(s): R10.9 - Unspecified abdominal pain (4) Abdominal swelling Status: Acute Code(s): R19.00 - Intra-abdominal and pelvic swelling, mass and lump, unspecified site (5) Constipation Status: Acute Code(s): K59.00 - Constipation, unspecified - Plan Assessment: - Hematemesis- Reports hematemesis for the past 3 days- approximately 4 episodes , has been experiencing nausea and dry heaves for much longer than that. Denies previous GIB. Has never had EGD. Heavy ETOH use- a few glasses of liquor daily. H/H stable- 15.1/43.5 - Abdominal pain and swelling- states pain for the past few months, generalized over entire abdomen, described as a grumbling pain when lying down, worse with sharp pain associated with movement and palpation. Seen at [facility] in January for same CT abdomen and pelvis was done which revealed nonspecific scattered subcentimeter periaortic lymph nodes and steatosis of the liver, pt was discharged home with Potassium supplements. CT abdomen and pelvis W IV contrast (04/27) Stable CT scan of the abdomen and pelvis compared to the prior study. Stable hepatomegaly with diffuse fatty infiltration and/or hepatocellular disease. There is a trace of ascites adjacent to the liver and deep in the pelvis. - Constipation- reports no BM in over a week- has tried Dulcolax at home with no relief. Does report passing gas. Denies history of constipation. Has never had colonoscopy. Of note, family history of colon cancer, father. - Elevated LFTs consistent with ETOH abuse No PT, unable to calculate DF AST-236 ALT-44 T bili-6.2 Alk phos-345 04/29/2018 patient had EGD done on 04/28/2018 results include esophageal varices grade 1, portal gastropathy with biopsies done. Hiatal hernia. Also had small bowel follow-through which was unremarkable. Patient continues to have talked abdomen mild nausea and vomiting this past p.m. but none today. Patient has appetite today and requested solid food, before he is clear liquid status tomorrow. Consent ordered for colonoscopy on Tuesday. Patient continues to complain of some generalized upper abdominal pain especially in the gastric area, waxes and wanes but mild improvement noted today. No obvious bleeding or hematemesis. Plan: Diet cardiac diet today Consent for colonoscopy Tuesday Liquid diet on Monday 04/30 Prep Freddie N.p.o. at midnight Tuesday night 05/01/2018 ETOH cessation and monitor any alcohol withdrawal Alcohol withdraw further recommendations based on clinical course and findings of above Pt has been seen and examined by myself and Dr. Pond and this note is written on her behalf (1) Hematemesis Qualifiers: Nausea presence: with nausea Qualified Code(s): K92.0 - Hematemesis (3) Abdominal pain Qualifiers: Abdominal location: generalized Qualified Code(s): R10.84 - Generalized abdominal pain
[2018-04-30] MEDS: Octreotide Inj 500 MCG in Sodium Chlor 0.9% Inj 500 ML IV.CONT SCH (02:05)
[2018-04-30] MEDS: oxyCODONE/Acetaminophen 10/325 Tablet PO PRN ×2 (06:45→18:32)
[2018-04-30] MEDS: Senna/Docusate Sodium 8.6/50 MG Tablet PO SCH ×2 (09:23→20:25)
[2018-04-30] MEDS ORDERED: PEG 3350/E-Lyte Soln 4000 ML Bottle PO ONE (14:00)
[2018-04-30] MEDS ORDERED: Potassium Chloride 25 MEQ Effervescent Tablet PO ONE (15:00)
--- NOTE | 2018-04-30 15:02 | P.PNGI ---
Subjective Interval history: Patient seen .Preparing for colonoscopy.Had severe abdominal pain earlier today , crampy like in lower abdomen.Got better after passing gas .Had SBFT yesterday had bowel movements, felt better .Stated had large meal yesterday .EGD , Ct suggesting portal hypertension most likely secondary ETOH liver disease .No nausea, vomiting, melena, hematemesis Physical Exam Vital signs: Vital Signs 04/29/18 20:20 04/30/18 00:05 04/30/18 01:01 Temperature 98.1 F 97.9 F Pulse Rate 83 81 Respiratory Rate 16 16 16 Blood Pressure 145/82 H 114/80 Pulse Oximetry 95 93 L 04/30/18 04:25 04/30/18 07:00 Temperature 97.9 F Pulse Rate 75 Respiratory Rate 16 18 Blood Pressure 126/80 Pulse Oximetry 96 Intake & Output 04/29/18 04/30/18 04/30/18 18:59 06:59 18:59 Intake Total 460 / 460 500.5 / 500.5 100 / 100 Balance 460 / 460 500.5 / 500.5 100 / 100 Weight 72.5 kg Intake: IV 100 / 100 500.5 / 500.5 100 / 100 SandoSTATIN Inj 500 MCG In NS 500.5 / 500.5 Inj 500 ML @ 25 MCG/HR 25.02 mls/hr IV.CONT .Q20H1M TOM Rx#: [id number] Rocephin Inj 1,000 MG In NS Inj 100 / 100 100 / 100 100 ML @ 200 mls/hr IV.SIG Q24H TOM Rx#:[id number] Oral 360 / 360 Other: # Voids 2 Date of Last Bowel Movement 04/28/18 - Constitutional no acute distress - Routine HEENT Exam Head: Present: normocephalic Eye: Present: EOMI ENT: Present: mucous membranes moist Comments: halitosis - Routine Neck Exam Present: supple - Routine Respiratory Exam Present: CTA bilaterally - Routine Cardiovascular Exam Present: RRR, S1, S2 - Routine Abdominal Exam Present: soft, tenderness, distended Comments: tenderness lower abdomen, bowel sounds hypoactive - Routine Skin Exam Present: intact - Routine Neurological Exam Present: alert, oriented X3 - Routine Psychiatric Exam Present: normal affect Results - Labs CBC & Chem 7: 04/29/18 07:47 04/29/18 07:47 - Procedures egd Assessment and Plan (1) Hematemesis Status: Acute Code(s): K92.0 - Hematemesis (2) Elevated LFTs Status: Acute Code(s): R94.5 - Abnormal results of liver function studies (3) Abdominal pain Status: Acute Code(s): R10.9 - Unspecified abdominal pain (4) Abdominal swelling Status: Acute Code(s): R19.00 - Intra-abdominal and pelvic swelling, mass and lump, unspecified site (5) Constipation Status: Acute Code(s): K59.00 - Constipation, unspecified - Attending Attestation Hematemesis -resolved-esophageal varices, portal gastopathy -egd/banding Tuesday Abdominal distension, constipation-no sign of obstruction so far-we will order stat CTA constipation-resolved -colonoscopy in am Portal hypertension lver cirrhosis most likely etoh liver disease -we will send additional liver w-up Recommendations D/c octreotide drip continue antibiotics for now fu CTA' EGD/banding/colonoscopy in am fu liver w-up avoid etoh (1) Hematemesis Qualifiers: Nausea presence: with nausea Qualified Code(s): K92.0 - Hematemesis (3) Abdominal pain Qualifiers: Abdominal location: generalized Qualified Code(s): R10.84 - Generalized abdominal pain
--- NOTE | 2018-04-30 15:35 | P.PN ---
Subjective Interval history: Follow-up visit hematemesis, GI bleed, transaminitis, abdominal pain. Patient seen and examined today. Reports he woke up today not feeling well. States that he has abdominal pain and cramping lower portion of the abdomen. States he has some nausea. States he is trying to prep up for colonoscopy tomorrow however he drank a little bit of the prep drink and vomited. States he is unable to pass gas. No bowel movements. Otherwise, Denies pain and discomfort. Denies SOB/ dyspnea. Denies chest pain, palpitations, headaches, dizziness. Denies fevers, chills. Denies dysuria. Physical Exam Vital signs: Vital Signs 04/29/18 20:20 04/30/18 00:05 04/30/18 01:01 Temperature 98.1 F 97.9 F Pulse Rate 83 81 Respiratory Rate 16 16 16 Blood Pressure 145/82 H 114/80 Pulse Oximetry 95 93 L 04/30/18 04:25 04/30/18 07:00 Temperature 97.9 F Pulse Rate 75 Respiratory Rate 16 18 Blood Pressure 126/80 Pulse Oximetry 96 Intake & Output 04/29/18 04/30/18 04/30/18 18:59 06:59 18:59 Intake Total 460 / 460 500.5 / 500.5 100 / 100 Balance 460 / 460 500.5 / 500.5 100 / 100 Weight 72.5 kg Intake: IV 100 / 100 500.5 / 500.5 100 / 100 SandoSTATIN Inj 500 MCG In NS 500.5 / 500.5 Inj 500 ML @ 25 MCG/HR 25.02 mls/hr IV.CONT .Q20H1M TOM Rx#: [id number] Rocephin Inj 1,000 MG In NS Inj 100 / 100 100 / 100 100 ML @ 200 mls/hr IV.SIG Q24H TOM Rx#:[id number] Oral 360 / 360 Other: # Voids 2 Date of Last Bowel Movement 04/28/18 Narrative: GENERAL: Well-developed well-nourished. In no acute distress. SKIN: Warm and dry. No lesions noted. HEENT: Normocephalic. Pupils equal and round. Mucous membranes pink and moist. CARDIOVASCULAR: Regular rate and rhythm. No murmur appreciated. RESPIRATORY: No accessory muscle use. Clear to auscultation. Breath sounds equal bilaterally. GASTROINTESTINAL: Abdomen tense, mildly tender diffusely but especially in the lower abdomen, moderate distension. Bowel sounds x4. MUSCULOSKELETAL: No obvious deformities. No clubbing or cyanosis. No edema. NEUROLOGICAL: Awake and alert. No focal neurological deficits. Moves upper and lower extremities spontaneously. Normal speech. PSYCHIATRIC: Appropriate mood and affect; insight and judgment normal. Results - Labs CBC & Chem 7: 04/29/18 07:47 04/29/18 07:47 - Procedures egd Assessment and Plan - Assessment (1) Abdominal pain Code(s): R10.9 - Unspecified abdominal pain Status: Acute (2) Abdominal swelling Code(s): R19.00 - Intra-abdominal and pelvic swelling, mass and lump, unspecified site Status: Acute (3) Constipation Code(s): K59.00 - Constipation, unspecified Status: Acute (4) Elevated LFTs Code(s): R94.5 - Abnormal results of liver function studies Status: Acute (5) Hematemesis Code(s): K92.0 - Hematemesis Status: Acute (6) Alcohol abuse Code(s): F10.10 - Alcohol abuse, uncomplicated Status: Acute (7) Esophageal varices Code(s): I85.00 - Esophageal varices without bleeding Status: Acute - Plan Patient is a 52-year-old gentleman who presented with hematemesis x3- 4 days Hematemesis, GI bleed -Consulted GI appreciate recommendations and intervention, status post EGD with findings of esophageal varices and portal gastropathy with status post biopsy. Planning on colonoscopy, Tuesday. -Alcohol cessation counseling again performed -Protonix. Counseled on gastritis diet. -Recommend alcohol cessation -IVF for now -Prep for colonoscopy Abdominal pain rule out upper GI pathology -Status post EGD and schedule for colonoscopy, Tuesday. -Clear liquid diet by gastroenterology. Colonoscopy prep. -Small bowel follow-through Unremarkable small bowel follow-through -Continues to have abdominal pain. CTA abd pelvis pending Elevated LFTs consistent with alcohol abuse (no evidence of withdrawal) Abdominal CT with hepatomegaly with diffuse fatty infiltration and/or hepatocellular disease. -Alcohol cessation -Multivitamin, thiamine, folic acid -Lactulose for elevated ammonia level. -Ascites noted on CT, on ceftriaxone for SBP prophylaxis Moderate to large varicocele: Currently asymptomatic -Recommended outpatient urology follow-up Hypokalemia -Replaced -Monitor potassium level DVT prophylaxis with SCDs Code Status: Full Code Discussed Condition With: Patient, nursing Discharge Planning: Plan to DC home when clinically improved. (1) Abdominal pain Qualifiers: Abdominal location: generalized Qualified Code(s): R10.84 - Generalized abdominal pain (5) Hematemesis Qualifiers: Nausea presence: with nausea Qualified Code(s): K92.0 - Hematemesis
--- NOTE | 2018-04-30 17:03 | CT ---
EXAM DATE: 04/30/2018 4:26 PM EDT AGE/SEX: 52 years / Male INDICATIONS: Abdominal pain and distention. CLINICAL DATA: This is the patient's initial encounter. Patient reports that signs and symptoms have been present for 1 week and indicates a pain score of 4/10. MEDICAL/SURGICAL HISTORY: . Esophageal varices, left hydrocele. None. RADIATION DOSE: 15.29 CTDI (mGy) COMPARISON: [facility] [place] & PELVIS W [place]AST, 04/27/2018. . TECHNIQUE: Volumetric scanning was performed using a multi-row detector CT scanner during bolus infu tia of 100 ml Omnipaque 350 (iohexol) nonionic water-soluble contrast as a single exam dose. . The data was post processed with a variety of visualization algorithms including full volume maximum int ensity projection, multi-planar sliding thin slab reformation, curved planar reformation, and surface rendering techniques. Using automated exposure control and adjustment of the mA and/or kV according to patient size, radiation dose was kept as low as reasonably achievable to obtain optimal diagnosti c quality images. DICOM format image data is available electronically for review and comparison. FINDINGS: Angiographic Findings: Abdominal Aorta: Mild atherosclerotic calcifications in the distal abdominal aorta without significa nt aneurysm or dissection. Iliacs: Minimal common iliac calcified plaque. Iliac arteries are otherwise patent. Renal Arteries: Single patent renal arteries. Mesenteric Arteries: Celiac, SMA, and CARIDAD are patent.: General Findings: LOWER LUNGS: Mild airspace consolidation in the right lung base likely reflecting atelectasis. LIVER: Diffuse hepatomegaly with diffusely decreased hepatic attenuation. Gallbladder is mildly dist ended but otherwise unremarkable by CT. SPLEEN: Homogeneous density without enlargement. PANCREAS: Unremarkable without mass or calcification. KIDNEYS: Kidneys are symmetrical in size without radiopaque renal calculi or hydronephrosis. Redemon stration of a 2.4 cm cyst in the superior pole of the left kidney. ADRENAL GLANDS: Unremarkable. BOWEL/MESENTERY: Scattered loops of marginally distended fluid-filled small bowel primarily in the m id abdomen. Bowel is otherwise stable in appearance.There is trace amount of ascites with fluid prima rily in the lower abdomen and perihepatic region. This is new since prior exam. ABDOMINAL WALL: Intact. RETROPERITONEUM: Nonspecific subcentimeter retroperitoneal nodes again demonstrated. BLADDER: Mildly distended but otherwise unremarkable. REPRODUCTIVE: No abnormal masses or calcifications seen. BONY STRUCTURES: Stable. CONCLUSION: 1. Minimal atherosclerotic disease. No aortic or mesenteric artery stenosis 2. Redemonstration of hepatomegaly with diffuse decreased hepatic attenuation consistent with hepati tis versus hepatic steatosis. There has been interval development of trace ascites since CT exam of . 3. Markedly distended fluid-filled loops of small bowel in the midabdomen may reflect developing damion namic ileus. 4. Remainder of exam is unchanged. Electronically signed by: Jesus Bright MD 04/30/2018 5:02 PM EDT
[2018-04-30] MEDS: Temazepam 15 MG Capsule PO PRN (23:20)
[2018-05-01 08:38] LABS: Baso # (Auto) 0.1 th/mm3 (0.0-0.2); Baso % (Auto) 0.6 % (0.0-2.0); Eos # (Auto) 0.1 th/mm3 (0.0-0.4); Eos % (Auto) 1.2 % (0.0-4.0); Hemoglobin 13.5 gm/dL (13.0-17.0); Lymph # (Auto) 1.3 th/mm3 (1.0-4.8); Mean Corpuscular HGB Conc 33.8 % (32.0-36.0); Mean Corpuscular Hemoglobin 37.8 pg (27.0-34.0); Mean Corpuscular Volume 111.8 fL (80.0-100.0); Mono # (Auto) 1.3 th/mm3 (0.0-0.9); Mono % (Auto) 12.8 % (0.0-8.0); Neut # (Auto) 7.2 th/mm3 (1.8-7.7); Neut % (Auto) 72.4 % (16.0-70.0); Platelet Count 109 th/mm3 (150-450); Red Blood Count 3.58 mil/mm3 (4.50-5.90); Red Cell Distribution Width 13.9 % (11.6-17.2); White Blood Count 9.9 th/mm3 (4.0-11.0)
[2018-05-01 09:03] LABS: Anion Gap 7 meq/L (5-15); Blood Urea Nitrogen 3 mg/dL (7-18); Calcium 8.2 mg/dL (8.5-10.1); Carbon Dioxide 31.5 meq/L (21.0-32.0); Chloride 100 meq/L (98-107); Glomerular Filtration Rate Greater Than 89 mL/min (>89); Glucose,Random 81 mg/dL (74-106); Potassium 3.2 meq/L (3.5-5.1); Sodium 138 meq/L (136-145)
[2018-05-01] MEDS: Senna/Docusate Sodium 8.6/50 MG Tablet PO SCH (10:42)
--- NOTE | 2018-05-01 11:43 | P.PN ---
Subjective Interval history: Follow-up visit hematemesis, GI bleed, transaminitis, abdominal pain. Patient seen and examined today. Reports he is doing a lot better. Able to tolerate colonic prep for GI procedure today. States he has been waiting patiently for the procedure to be started. Otherwise no acute issues overnight. Denies nausea, vomiting. States improve abdominal pain. Physical Exam Vital signs: Vital Signs 05/01/18 00:00 05/01/18 04:00 05/01/18 08:00 Temperature 97.9 F 97.8 F 97.9 F Pulse Rate 85 80 77 Respiratory Rate 16 16 18 Blood Pressure 107/55 L 122/81 130/76 Pulse Oximetry 96 94 L 95 Intake & Output 04/30/18 05/01/18 05/01/18 18:59 06:59 18:59 Intake Total 100 / 100 0 / 0 Balance 100 / 100 0 / 0 Intake: IV 100 / 100 Rocephin Inj 1,000 MG In NS Inj 100 / 100 100 ML @ 200 mls/hr IV.SIG Q24H TOM Rx#:[id number] Oral 0 / 0 Other: # Voids 4 Date of Last Bowel Movement 04/30/18 # Bowel Movements 6 4 Narrative: GENERAL: Well-developed well-nourished. In no acute distress. SKIN: Warm and dry. No lesions noted. HEENT: Normocephalic. Pupils equal and round. Mucous membranes pink and moist. CARDIOVASCULAR: Regular rate and rhythm. No murmur appreciated. RESPIRATORY: No accessory muscle use. Clear to auscultation. Breath sounds equal bilaterally. GASTROINTESTINAL: Abdomen tense, mildly tender diffusely but especially in the lower abdomen, moderate distension. Bowel sounds x4. MUSCULOSKELETAL: No obvious deformities. No clubbing or cyanosis. No edema. NEUROLOGICAL: Awake and alert. No focal neurological deficits. Moves upper and lower extremities spontaneously. Normal speech. PSYCHIATRIC: Appropriate mood and affect; insight and judgment normal. Results - Labs CBC & Chem 7: 05/01/18 07:45 05/01/18 07:45 Laboratory Results - last 24 hr 05/01/18 05/01/18 07:45 07:45 WBC 9.9 RBC 3.58 L Hgb 13.5 Hct 40.0 MCV 111.8 H MCH 37.8 H MCHC 33.8 RDW 13.9 Plt Count 109 L MPV 8.0 Neut % (Auto) 72.4 H Lymph % (Auto) 13.0 Branch % (Auto) 12.8 H Eos % (Auto) 1.2 Baso % (Auto) 0.6 Neut # (Auto) 7.2 Lymph # (Auto) 1.3 Branch # (Auto) 1.3 H Eos # (Auto) 0.1 Baso # (Auto) 0.1 WBC Differential . Differential Comment Auto diff final Sodium 138 Potassium 3.2 L Chloride 100 Carbon Dioxide 31.5 Anion Gap 7 BUN 3 L Creatinine 0.62 Estimated GFR Greater than 89 Random Glucose 81 Calcium 8.2 L - Imaging Impressions Abdomen/Pelvis CTA 04/30/18 00:00 CONCLUSION: 1. Minimal atherosclerotic disease. No aortic or mesenteric artery stenosis 2. Redemonstration of hepatomegaly with diffuse decreased hepatic attenuation consistent with hepatitis versus hepatic steatosis. There has been interval development of trace ascites since CT exam of 04/27/2018. 3. Markedly distended fluid-filled loops of small bowel in the midabdomen may reflect developing adynamic ileus. 4. Remainder of exam is unchanged. - Procedures egd Assessment and Plan - Assessment (1) Abdominal pain Code(s): R10.9 - Unspecified abdominal pain Status: Acute (2) Abdominal swelling Code(s): R19.00 - Intra-abdominal and pelvic swelling, mass and lump, unspecified site Status: Acute (3) Constipation Code(s): K59.00 - Constipation, unspecified Status: Acute (4) Elevated LFTs Code(s): R94.5 - Abnormal results of liver function studies Status: Acute (5) Hematemesis Code(s): K92.0 - Hematemesis Status: Acute (6) Alcohol abuse Code(s): F10.10 - Alcohol abuse, uncomplicated Status: Acute (7) Esophageal varices Code(s): I85.00 - Esophageal varices without bleeding Status: Acute - Plan Patient is a 52-year-old gentleman who presented with hematemesis x3- 4 days Hematemesis, GI bleed -Consulted GI appreciate recommendations and intervention, status post EGD with findings of esophageal varices and portal gastropathy with status post biopsy. Planning on colonoscopy, Tuesday. -Alcohol cessation counseling again performed -Protonix. Counseled on gastritis diet. -Recommend alcohol cessation -IVF for now -Prep for colonoscopy today -Discussed with patient plan to DC him home if everything goes well with colonoscopy. Patient is agreeable and states he has no symptomatology today. Abdominal pain rule out upper GI pathology -Status post EGD and schedule for colonoscopy. -Clear liquid diet by gastroenterology. Colonoscopy prep. -Small bowel follow-through Unremarkable small bowel follow-through -Continues to have abdominal pain. CTA abd pelvis pending Elevated LFTs consistent with alcohol abuse (no evidence of withdrawal) Abdominal CT with hepatomegaly with diffuse fatty infiltration and/or hepatocellular disease. -Alcohol cessation -Multivitamin, thiamine, folic acid -Lactulose for elevated ammonia level. -Ascites noted on CT, on ceftriaxone for SBP prophylaxis Moderate to large varicocele: Currently asymptomatic -Recommended outpatient urology follow-up Hypokalemia -Replaced -Monitor potassium level DVT prophylaxis with SCDs Code Status: Full code Discussed Condition With: Patient, nursing Discharge Planning: Plan to DC home post colonoscopy if everything goes well cleared by GI. (1) Abdominal pain Qualifiers: Abdominal location: generalized Qualified Code(s): R10.84 - Generalized abdominal pain (5) Hematemesis Qualifiers: Nausea presence: with nausea Qualified Code(s): K92.0 - Hematemesis
--- NOTE | 2018-05-01 14:26 | GIPROC ---
[facility] [address] [facility]. [facility], [id number] COLONOSCOPY PROCEDURE REPORT EXAM DATE: 05/01/2018 PATIENT NAME: Tree Thompson MR #: [id number] BIRTHDATE: 1965 ENDOSCOPIST: Joyce Roger MD ORDER #: [id number] BUSHLER: Suly Don and Cristal Cuevas STATUS: inpatient INDICATIONS: The patient is a 52 yr old male here for a colonoscopy due to anemia, non-specific PROCEDURE PERFORMED: Colonoscopy, diagnostic MEDICATIONS: None and Per Anesthesia. PREP QUALITY: fair PREP TYPE:Magnesium Citrate ESTIMATED BLOOD LOSS: None CONSENT: The patient understands the risks and benefits of the procedure and understands that these risks include, but are not limited to: sedation, allergic reaction, infection, perforation and/or bleeding. Alternative means of evaluation and treatment include, among others: physical exam, x-rays, and/or surgical intervention. The patient elects to proceed with this endoscopic procedure. medical equipment was checked for proper function. Hand hygiene and appropriate measures for infection prevention was taken. After the risks, benefits and alternatives of the procedure were thoroughly explained, Informed consent was verified, confirmed and timeout was successfully executed by the treatment team. A digital exam revealed no abnormalities of the rectum The Pentax [id number] endoscope was introduced through the anus and advanced to the cecum, which was identified by both the appendix and ileocecal valve. The instrument was then slowly withdrawn as the colon was fully examined. COLON FINDINGS: The colonic mucosa appeared normal throughout the entire examined colon. Retroflexed views revealed internal hemorrhoids and Retroflexed views revealed medium internal hemorrhoids The scope was then completely withdrawn from the patient and the procedure terminated. PROCEDURE WITHDRAWAL TIME:8minutes ADVERSE EVENTS: There were no complications. IMPRESSIONS: 1. The colonic mucosa appeared normal throughout the entire examined colon 2. Retroflexed views revealed internal hemorrhoids RECOMMENDATIONS: Continue surveillance RECALL: Return 5 years Colonoscopy Joyce Roger MD eSigned: Joyce Roger MD 05/01/2018 2:26 PM cc: PATIENT NAME: Tree Thompson MR#: [id number]
--- NOTE | 2018-05-01 15:39 | P.DS ---
Date of admission: 04/27/18 10:30 Primary care physician: UNKNOWN Attending physician on discharge: Vicotr M Resendiz Anticipated date of discharge: 05/01/18 Brief History from admission: Patient is a 52-year-old gentleman. He has past medical history significant for alcohol abuse presented to the emergency department here at [facility] with complaints of abdominal pain and swelling in hematemesis. Patient states he has been having abdominal pain for months with some swelling and some abdominal pain. Is also been having some nausea and vomiting of blood been having hematemesis for the past 3 days with about 4 episodes at home patient states he pretty much drinks daily Patient will be admitted gastroenterology will be consult. Medications will be adjusted DS: Diagnosis - Discharge Diagnosis (1) Abdominal pain Status: Acute (2) Abdominal swelling Status: Acute (3) Constipation Status: Acute (4) Elevated LFTs Status: Acute (5) Hematemesis Status: Acute (6) Alcohol abuse Status: Acute (7) Esophageal varices Status: Acute DS: Medications - Discharge Medications Prescriptions: multivitamin with folic acid [Thera] 1 tab PO DAILY #30 tab thiamine HCl (vitamin B1) 100 mg PO DAILY #30 tab DS: Summary Hospital Course: Patient is a 52-year-old gentleman who presented with hematemesis x3- 4 days. Patient is known EtOH. Consulted GI patient is status post EGD with findings of esophageal varices and portal gastropathy status post biopsy. Colonoscopy was done patient was found to have colonic mucosa appeared normal throughout the entire colon. Internal hemorrhoids. Recommend to return for colonoscopy in 5 years. Patient will follow up with GI in 1-2 weeks for biopsy. Needs to continue with antireflux regimen. Return for EGD in 6 weeks. Patient was counseled on alcohol cessation. Elevated LFTs noted which is consistent with his alcohol abuse with no evidence of withdrawal. Abdominal CT with hepatomegaly with diffuse fatty infiltration and/or hepatocellular disease. Patient was placed on multivitamin, thiamine, folic acid which he would continue in the outpatient. He has hypokalemia or in patient gets potassium replacement. He will need to follow-up in outpatient for further trending of his potassium. Recommended [facility] if he has no primary care doctor. Patient is clinically improved. Patient has met maximal benefits of hospitalization. Clinically stable for discharge. - Time Spent with Patient Total time spent providing and/or coordinating discharge services: Less than 30 minutes - Quality: VTE Deep Vein Thrombosis/Pulmonary Embolism Present on Admission: No Exam Vital signs: Vital Signs 05/01/18 00:00 05/01/18 04:00 05/01/18 08:00 Temperature 97.9 F 97.8 F 97.9 F Pulse Rate 85 80 77 Respiratory Rate 16 16 18 Blood Pressure 107/55 L 122/81 130/76 Pulse Oximetry 96 94 L 95 05/01/18 12:00 05/01/18 14:21 Temperature 98.0 F 96.9 F L Pulse Rate 81 80 Respiratory Rate 18 22 Blood Pressure 122/80 91/61 L Pulse Oximetry 96 Intake & Output 04/30/18 05/01/18 05/01/18 18:59 06:59 18:59 Intake Total 100 / 100 0 / 0 Balance 100 / 100 0 / 0 Intake: IV 100 / 100 Rocephin Inj 1,000 MG In NS Inj 100 / 100 100 ML @ 200 mls/hr IV.SIG Q24H TOM Rx#:[id number] Oral 0 / 0 Other: # Voids 4 Date of Last Bowel Movement 04/30/18 # Bowel Movements 6 4 Narrative: GENERAL: Well-developed well-nourished. In no acute distress. SKIN: Warm and dry. No lesions noted. HEENT: Normocephalic. Pupils equal and round. Mucous membranes pink and moist. CARDIOVASCULAR: Regular rate and rhythm. No murmur appreciated. RESPIRATORY: No accessory muscle use. Clear to auscultation. Breath sounds equal bilaterally. GASTROINTESTINAL: Abdomen softer, mild distension. Bowel sounds x4. MUSCULOSKELETAL: No obvious deformities. No clubbing or cyanosis. No edema. NEUROLOGICAL: Awake and alert. No focal neurological deficits. Moves upper and lower extremities spontaneously. Normal speech Results Procedures completed during hospitalization: EGD Colonoscopy Pending studies at discharge: Pending at discharge 04/28/18 Surgical [PTH] Routine Labs on day of discharge: Labs from last 24 hours 05/01/18 05/01/18 07:45 07:45 WBC 9.9 RBC 3.58 L Hgb 13.5 Hct 40.0 MCV 111.8 H MCH 37.8 H MCHC 33.8 RDW 13.9 Plt Count 109 L MPV 8.0 Neut % (Auto) 72.4 H Lymph % (Auto) 13.0 Baldwin % (Auto) 12.8 H Eos % (Auto) 1.2 Baso % (Auto) 0.6 Neut # (Auto) 7.2 Lymph # (Auto) 1.3 Baldwin # (Auto) 1.3 H Eos # (Auto) 0.1 Baso # (Auto) 0.1 WBC Differential . Differential Comment Auto diff final Sodium 138 Potassium 3.2 L Chloride 100 Carbon Dioxide 31.5 Anion Gap 7 BUN 3 L Creatinine 0.62 Estimated GFR Greater than 89 Random Glucose 81 Calcium 8.2 L - Impressions ITS Impressions Abdomen/Pelvis CT 04/27/18 07:13 CONCLUSION: 1. Stable CT scan of the abdomen and pelvis compared to the prior study. 2. Stable hepatomegaly with diffuse fatty infiltration and/or hepatocellular disease . 3. There is a trace of ascites adjacent to the liver and deep in the pelvis. 4. A few stable nonspecific subcentimeter para-aortic lymph nodes. Scrotum Ultrasound 04/27/18 07:40 CONCLUSION: 1. Both testicles are within normal limits. 2. There is a simple appearing left epididymal cyst in the head of the epididymis measuring 1.6 x 1.7 cm. 3. There is a moderate to large right-sided hydrocele. Small Bowel X-Ray 04/28/18 00:00 CONCLUSION: Unremarkable small bowel follow-through. Abdomen/Pelvis CTA 04/30/18 00:00 CONCLUSION: 1. Minimal atherosclerotic disease. No aortic or mesenteric artery stenosis 2. Redemonstration of hepatomegaly with diffuse decreased hepatic attenuation consistent with hepatitis versus hepatic steatosis. There has been interval development of trace ascites since CT exam of 04/27/2018. 3. Markedly distended fluid-filled loops of small bowel in the midabdomen may reflect developing adynamic ileus. 4. Remainder of exam is unchanged. Discharge Plan - Discharge Disposition Patient Disposition: 01 Discharge Home - Discharge Condition Condition: Fair - Discharge Order Discharge Orders: Discharge Order (Routine); Ordered 05/01/18 Ordered By: Jerri Gregorio - Discharge Details Discharge Comment: DC home when cleared by GI, tolerating PO - Physicians Team Primary Care Provider: UNKNOWN, Attending Provider: Victor M Resendiz Other Providers: Cindy Pond MD
[2018-05-01] MEDS: oxyCODONE/Acetaminophen 10/325 Tablet PO PRN (16:19)
[2018-05-01] MEDS ORDERED: Lidocaine PF 1% Inj 5 ML Syringe INFILTRATN ONE (18:27)
== END 2018-05-01 18:28 | disposition home or self-care (01) ==
LOC: NEPE 05:46 → NEDA 10:30 → N06 16:03
PROVIDERS: ADMIT Family Medicine; ATTEND Family Medicine
PROC: COLONOS (2018-05-01 13:19)

== ENCOUNTER 2018-07-10 12:25 | Observation (INO) ==
[2018-07-10] MEDS ORDERED: Pantoprazole Inj 40 MG Vial IV.PUSH ONE (12:49)
--- NOTE | 2018-07-10 12:56 | ED ---
HPI General Chief Complaint: Chest Pain Stated Complaint: CHEST PAIN/SOB Time Seen by Provider: 07/10/18 12:39 History of Present Illness HPI narrative: This patient complains of chest pain and pressure. Describes it as someone giving him a bear hug. Is across his sternum. He has nausea and retching. No hemoptysis today. Patient has history of alcohol abuse and was hospitalized 2 months ago for hemoptysis and EGD revealed varices. He minimizes his drinking. He denies cardiac history. No alleviating factors. No exacerbating factors. Duration 24 hours. Related Data Home Medications Medication Instructions Recorded Confirmed No Known Home Medications 04/27/18 07/10/18 Allergies Allergy/AdvReac Type Severity Reaction Status Date / Time No Known Allergies Allergy Verified 07/10/18 12:38 Review of Systems ROS: all other systems reviewed are negative PMFSH Social History Social History Substance History: No History of Abuse Second Hand Smoke Exposure: No Smoking Status: Never smoker How Often Do You Have a Drink Containing Alcohol: 2 to 4 times a month Recent Travel in [facility] within the Last 8 Weeks: No Recent Out of Country Travel within the Last 8 Weeks: No Exam Narrative Exam Narrative: GENERAL: Well-nourished, well-developed patient with nausea and chest discomfort . SKIN: Focused skin assessment reveals no rash and nodules. Skin is Warm and dry. HEAD: Atraumatic. Normocephalic. EYES: Pupils equal and round. No scleral icterus. No injection or drainage. ENT: No nasal bleeding or discharge. Mucous membranes pink and moist. NECK: Trachea midline. No JVD. CARDIOVASCULAR: Regular rate and rhythm. No murmur appreciated. RESPIRATORY: No accessory muscle use. Clear to auscultation. Breath sounds equal bilaterally. GASTROINTESTINAL: Abdomen soft, non-tender, nondistended. Hepatic and splenic margins not palpable. MUSCULOSKELETAL: No obvious deformities. No clubbing. No cyanosis. No edema. NEUROLOGICAL: Awake and alert. No obvious cranial nerve deficits. Motor grossly within normal limits. Normal speech. PSYCHIATRIC: Anxious mood and affect; insight and judgment seems poor Course Initial Documented Vital Signs Temperature 97.6 F 07/10/18 12:30 Pulse Rate 88 07/10/18 12:30 Respiratory Rate 20 07/10/18 12:30 Blood Pressure 155/77 H 07/10/18 12:30 Pulse Oximetry 100 07/10/18 12:30 Last Documented Vital Signs Temperature 97.6 F 07/10/18 12:30 Pulse Rate 90 07/10/18 13:34 Respiratory Rate 20 07/10/18 13:34 Blood Pressure 135/75 07/10/18 13:34 Pulse Oximetry 100 07/10/18 12:35 Medical Decision Making MDM Narrative Medical decision making narrative: IV placed and labs sent. I reviewed his EKG which shows sinus rhythm but no ST elevation Given his GI history I gave him IV Zofran and Phenergan and IV Protonix There is a good chance this is GI related. However he is never had cardiac workup per his report and is having chest discomfort. Patient has hypokalemia. I am replacing that with IVs given his nausea. He has thrombocytopenia so I am holding off on antiplatelet agents at that time. I reviewed this with the hospitalist who will do telemetry observation for his chest pain. He has not had any hemoptysis or vomiting here. He did have some nausea and retching was controlled with nausea medication. Medical Screen Exam Complete: Yes Emergency Medical Condition: Yes Differential Diagnosis Differential Diagnosis: Differential diagnosis includes [place], angina, pericarditis , pleurisy, GERD, anxiety. Medical Records Medical records reviewed: Yes I reviewed the patient's medical records. Patient was hospitalized 2 months ago and had EGD showing varices Lab Data Lab results reviewed: Yes I reviewed the patient's lab results. Result diagrams: 07/10/18 12:35 07/10/18 12:35 Lab Results 07/10/18 07/10/18 07/10/18 Range/Units 12:35 12:35 12:35 CBC w Diff Slide review pending WBC 3.9 L (4.0-11.0) th/mm3 RBC 5.03 (4.50-5.90) mil/mm3 Hgb 16.5 (13.0-17.0) gm/dL Hct 50.2 (39.0-51.0) % MCV 100.0 (80.0-100.0) fL MCH 32.8 (27.0-34.0) pg MCHC 32.8 (32.0-36.0) % RDW 12.9 (11.6-17.2) % Plt Count 57 L (150-450) th/mm3 MPV 9.3 (7.0-11.0) fL Neut % (Auto) 76.6 H (16.0-70.0) % Lymph % (Auto) 13.3 (9.0-44.0) % Dawes % (Auto) 9.1 H (0.0-8.0) % Eos % (Auto) 0.2 (0.0-4.0) % Baso % (Auto) 0.8 (0.0-2.0) % Neut # (Auto) 3.0 (1.8-7.7) th/mm3 Lymph # (Auto) 0.5 L (1.0-4.8) th/mm3 Dawes # (Auto) 0.4 (0.0-0.9) th/mm3 Eos # (Auto) 0.0 (0.0-0.4) th/mm3 Baso # (Auto) 0.0 (0.0-0.2) th/mm3 WBC Differential . Diff Scan Auto diff confirmed Differential Comment . Platelet Estimate Low L (Normal) Platelet Morphology Normal (Normal) PT 12.7 H (9.8-11.6) sec INR 1.3 Ratio APTT 28.7 (24.3-30.1) sec Sodium 139 (136-145) meq/L Potassium 2.8 L* (3.5-5.1) meq/L Chloride 99 (98-107) meq/L Carbon Dioxide 22.9 (21.0-32.0) meq/L Anion Gap 17 H (5-15) meq/L BUN 6 L (7-18) mg/dL Creatinine 1.10 (0.60-1.30) mg/dL Estimated GFR 70 L (>89) mL/min Random Glucose 104 (74-106) mg/dL Calcium 9.0 (8.5-10.1) mg/dL Total Bilirubin 3.1 H (0.2-1.0) mg/dL AST 243 H (15-37) U/L ALT 67 (12-78) U/L Alkaline Phosphatase 271 H (45-117) U/L Total Creatine Kinase 895 H (39-308) U/L CK-MB (CK-2) 4.1 H (0.5-3.6) ng/mL CK-MB (CK-2) % 0.5 (0.0-4.0) % Troponin I 0.07 H (0.02-0.05) ng/mL Total Protein 10.3 H (6.4-8.2) g/dL Albumin 3.9 (3.4-5.0) g/dL Lipase 163 (73-393) U/L Imaging Data Attestation: I personally reviewed and interpreted this imaging study as follows : Radiologist's impression: Chest X-Ray 07/10/18 12:44 CONCLUSION: Cardiomegaly. No acute pulmonary disease. Discharge Plan Discharge Disposition Patient Disposition: 30 Still Patient Discharge Details Diagnosis: Chest pain in adult Physicians Team ED Provider: Misael Brooks Primary Care Provider: Primary Care Kim Garay Rxs /Orders / Referrals /Forms Prescriptions: No Action No Known Home Medications RF: 0 Discharge Instructions Patient Printed Instructions: Chest Pain (ED) Status ED Status: With Doctor
[2018-07-10 13:06] LABS: Baso % (Auto) 0.8 % (0.0-2.0); Eos % (Auto) 0.2 % (0.0-4.0); Hematocrit 50.2 % (39.0-51.0); Hemoglobin 16.5 gm/dL (13.0-17.0); Lymph # (Auto) 0.5 th/mm3 (1.0-4.8); Lymph % (Auto) 13.3 % (9.0-44.0); Mean Corpuscular HGB Conc 32.8 % (32.0-36.0); Mean Corpuscular Hemoglobin 32.8 pg (27.0-34.0); Mean Platelet Volume 9.3 fL (7.0-11.0); Mono # (Auto) 0.4 th/mm3 (0.0-0.9); Mono % (Auto) 9.1 % (0.0-8.0); Neut % (Auto) 76.6 % (16.0-70.0); Platelet Count 57 th/mm3 (150-450); Red Blood Count 5.03 mil/mm3 (4.50-5.90); Red Cell Distribution Width 12.9 % (11.6-17.2); White Blood Count 3.9 th/mm3 (4.0-11.0)
[2018-07-10 13:20] LABS: Activated Partial Thrombo Time 28.7 sec (24.3-30.1); Chloride 99 meq/L (98-107); INR 1.3 Ratio; Prothrombin Time 12.7 sec (9.8-11.6); Sodium 139 meq/L (136-145)
[2018-07-10 13:22] LABS: Potassium 2.8 meq/L (3.5-5.1)
[2018-07-10] MEDS ORDERED: Sod Chloride 0.9% Inj 1,000 ML IV.SIG ONE (13:23)
--- NOTE | 2018-07-10 13:34 | XR ---
EXAM DATE: 07/10/2018 1:32 PM EDT AGE/SEX: 52 years / Male INDICATIONS: Chest pain, short of breath. CLINICAL DATA: This is the patient's initial encounter. Patient reports that signs and symptoms have been present for 2 days and indicates a pain score of 8/10. MEDICAL/SURGICAL HISTORY: . Esophageal varices, left hydrocele. None. COMPARISON: [facility], CHEST SINGLE AP, 02/20/2018. . FINDINGS: The cardiac silhouette is enlarged in transverse diameter. The lungs are free of acute parenchymal op acity. No effusions are identified. CONCLUSION: Cardiomegaly. No acute pulmonary disease. Electronically signed by: Joe Tabares MD 07/10/2018 1:33 PM EDT
[2018-07-10 13:35] LABS: Alanine Aminotransferase 67 U/L (12-78); Anion Gap 17 meq/L (5-15); Aspartate Aminotransferase 243 U/L (15-37); Blood Urea Nitrogen 6 mg/dL (7-18); Carbon Dioxide 22.9 meq/L (21.0-32.0); Glomerular Filtration Rate 70 mL/min (>89); Glucose,Random 104 mg/dL (74-106)
[2018-07-10 13:36] LABS: Albumin 3.9 g/dL (3.4-5.0); Alkaline Phosphatase 271 U/L (45-117); Creatine Kinase 895 U/L (39-308); Lipase 163 U/L (73-393); Total Protein 10.3 g/dL (6.4-8.2); Troponin I 0.07 ng/mL (0.02-0.05)
[2018-07-10 13:47] LABS: Platelet Morphology Normal (Normal)
[2018-07-10 13:55] LABS: CKMB Percent 0.5 % (0.0-4.0); Creatine Kinase MB 4.1 ng/mL (0.5-3.6)
[2018-07-10] MEDS ORDERED: Morphine Sulfate Inj 2 MG/ML Vial IV.PUSH PRN (14:30)
[2018-07-10] MEDS ORDERED: Haloperidol Inj 5 MG/ML Ampul IV.PUSH PRN (14:36)
[2018-07-10] MEDS ORDERED: LORazepam 1 MG Tablet PO PRN (14:36)
--- NOTE | 2018-07-10 14:55 | P.HPIM ---
History of Present Illness Service: medicine. Primary Care Physician: No Primary Care Physician Chief Complaint: Chest pain History of Present Illness: This is a 52-year-old male with past medical history of alcohol abuse, liver cirrhosis with portal hypertension, esophageal varices, portal gastropathy who presented with chest pain yesterday morning. Patient stated that yesterday he felt chest pain started abruptly. He stated that he felt something was hugging his chest. He also chestnuts of breathing. Patient stated that the symptoms have been constant since yesterday morning. He stated that he did not come to emergency department immediately because he felt like it was a muscle strain. Patient initially denied any drinking for the past 2 months but when I stated to him that his liver enzymes are elevated he stated that he did drink beer at a wedding this past Tuesday because it was very hot. Patient also complained about nausea and vomiting. Emesis described as clear or yellow. No blood in emesis. Nothing makes the chest pain better or worse. Denies any abdominal pain. Denies any constipation or diarrhea. Review of Systems Constitutional: Denies anorexia, Denies body ache(s), Denies chills, Denies daytime sleepiness, Denies excessive sweating, Denies fatigue, Denies fever(s), Denies headache(s), Denies increased appetite, Denies lack of energy, Denies malaise, Denies night sweats, Denies weakness, Denies weight gain, Denies weight loss, Denies other Eyes: Denies blind spots, Denies blurry vision, Denies bulging eyes, Denies change in vision, Denies double vision, Denies discharge, Denies dry eyes, Denies floaters, Denies irritation, Denies itchy eyes, Denies loss of vision, Denies pain, Denies requires corrective lenses, Denies sensitivity to light, Denies other Ears, Nose, Mouth, and Throat: Denies abnormal hearing, Denies bleeding gums, Denies bad breath, Denies change in voice, Denies dental pain, Denies difficulty swallowing, Denies dizziness, Denies dry mouth, Denies ear discharge , Denies ear pain, Denies facial pain, Denies headache(s), Denies hearing loss, Denies hoarseness, Denies lip swelling, Denies nosebleed, Denies mouth lesions, Denies mouth pain, Denies nasal congestion, Denies nasal discharge, Denies nasal obstruction, Denies nasal trauma, Denies neck lump, Denies neck pain, Denies nose pain, Denies pain with swallowing, Denies poor balance, Denies post nasal drip, Denies ringing in the ears, Denies sinus pain, Denies sinus pressure , Denies sore throat, Denies throat swelling, Denies tongue swelling, Denies other Cardiovascular: Reports chest pain, Denies chest pain at rest, Denies chest pain with activity, Denies excessive sweating, Denies fainting, Denies fast heart rate, Denies foot swelling, Denies generalized swelling, Denies irregular heart rhythm, Denies leg pain with activity, Denies leg sores, Denies leg swelling, Denies lightheadedness, Denies radiating jaw, neck or arm pain, Denies rapid, pounding, or irregular heartbeat, Denies shortness of breath, Denies shortness of breath with activity, Denies shortness of breath when lying down, Denies shortness of breath causing sudden awakening, Denies slow heart rate, Denies other Respiratory: Reports shortness of breath, Denies change in phlegm color, Denies chest congestion, Denies cough, Denies coughing up blood, Denies excessive phlegm production, Denies pain on inspiration, Denies pain with cough, Denies shortness of breath with activity, Denies snoring, Denies stridor, Denies wheezing, Denies other Gastrointestinal: Reports nausea, Reports vomiting, Denies abdominal pain, Denies belching, Denies black, tarry stools, Denies bloating, Denies bright, red blood in stools, Denies change in bowel habits, Denies constant urge to pass stool, Denies change in stools, Denies coffee ground vomit, Denies constipation, Denies cramping, Denies difficulty swallowing, Denies excessive passing of gas, Denies feeling full early, Denies heartburn, Denies incontinent of stools, Denies loose stools, Denies pain with swallowing, Denies vomiting blood, Denies other Genitourinary: Denies blood in semen, Denies blood in urine, Denies decreased urination, Denies difficulty urinating, Denies difficulty with ejaculations, Denies erectile dysfunction, Denies genital lesions, Denies genital pain, Denies painful urination, Denies side pain, Denies frequent nighttime urination , Denies painful ejaculations, Denies penile discharge, Denies scrotal swelling , Denies testicle lump, Denies testicle pain, Denies urinary frequency, Denies urinary hesitancy, Denies urinary incontinence, Denies urinary urgency, Denies other Musculoskeletal: Denies abnormal walking, Denies back pain, Denies body aches, Denies decreased muscle mass, Denies deformity, Denies joint pain, Denies joint swelling, Denies limited joint movement, Denies loss of height, Denies muscle cramps, Denies muscle weakness, Denies neck pain, Denies numbness, Denies radiating pain into limb, Denies stiffness, Denies tingling, Denies other Skin/Breast: Denies acne, Denies bleeding lesions, Denies boil, Denies breast swelling, Denies breast skin changes, Denies breast pain, Denies breast lump, Denies change in breast shape, Denies change in hair, Denies change in skin color, Denies changing lesions, Denies dry skin, Denies excessive hair growth, Denies hair loss, Denies itching, Denies lesions, Denies nail changes, Denies new lesions, Denies nipple discharge, Denies non-healing lesions, Denies redness , Denies sensitivity to light, Denies rash, Denies skin pain, Denies skin ulcer , Denies sores, Denies stretch low, Denies unusual bruising, Denies wounds, Denies yellowing of the skin, Denies other Neurologic: Denies abnormal hearing, Denies abnormal movements, Denies abnormal speech, Denies abnormal walking, Denies behavioral changes, Denies burning sensations, Denies confusion, Denies dizziness, Denies fainting, Denies frequent falls, Denies headache(s), Denies lack of coordination, Denies localized weakness, Denies loss of vision, Denies memory loss, Denies numbness, Denies other visual disturbances, Denies radiating pain, Denies restless legs, Denies convulsions, Denies seizure-like activity, Denies sensory deficit, Denies tingling, Denies tingling/numbness/burning sensations, Denies tremor(s), Denies unsteadiness, Denies weakness, Denies other Psychiatric: Denies abnormal sleep pattern, Denies anxiety, Denies behavioral changes, Denies change in appetite, Denies change in sex drive, Denies confusion , Denies depression, Denies difficulty concentrating, Denies hearing things others do not hear, Denies hopelessness, Denies irritability, Denies lack of enjoyment, Denies memory loss, Denies mood swings, Denies panic attacks, Denies paranoia, Denies seeing things others do not see, Denies sensing things others do not sense, Denies tactile hallucinations, Denies thoughts of hurting/killing others, Denies thoughts of hurting/killing yourself, Denies other Endocrine: Denies cold intolerance, Denies excessive sweating, Denies flushing, Denies heat intolerance, Denies increased hunger, Denies increased thirst, Denies increased urination, Denies rapid, pounding, or irregular heartbeat, Denies other Hematologic/Lymphatic: Denies easy bleeding, Denies easy bruising, Denies enlarged lymph nodes, Denies other Allergic/Immunologic: Denies GI upset with certain foods, Denies hives, Denies itchy eyes, Denies lip swelling, Denies seasonal runny nose, Denies throat swelling, Denies tongue swelling, Denies wheezing, Denies other PMFSH - History History Provided By: Patient, Family Member - Medical History Medical History: Medical History (Last Updated 07/10/18 @ 14:52 by Darcy Mendes MD) Alcohol abuse Esophageal varices in alcoholic cirrhosis Portal hypertension Portal hypertensive gastropathy Portal hypertensive gastropathy - Surgical History Surgical History: Surgical History (Last Updated 07/10/18 @ 14:53 by Darcy Mendes MD) History of appendectomy History of appendectomy - Family History Family History: Family History (Last Updated 07/10/18 @ 14:53 by Darcy Mendes MD) Other No pertinent family history - Tobacco History Second Hand Smoke Exposure: No Smoking Status: Never smoker - Alcohol History How Often Do You Have a Drink Containing Alcohol: 2 to 4 times a month - Substance Use History Substance History: No History of Abuse - Travel History Recent Travel in the [facility] Within the Last 8 Weeks: No Recent Travel Out of the Country Within the Last 8 Weeks: No - Immunization History Tetanus Immunization: Unsure Hx Influenza Vaccine This Season: No Medications and Allergies Active Medications: Active Medications Flumazenil (Romazecon Inj) 0.2 mg IV.PUSH Q1M PRN PRN Reason: OVERSEDATION Haloperidol Lactate (Haldol Inj) 1 mg IV.PUSH Q15M PRN PRN Reason: for severe agitation Potassium Chloride/Sodium Chloride (Ns + Kcl 40 Meq Inj) 1,000 mls @ 250 mls/ hr IV.CONT .Q4H TOM Last Infusion: 07/10/18 13:33 Dose: Infused Sodium Chloride (Ns Inj) 1,000 mls @ 100 mls/hr IV.CONT .Q10H TOM Lorazepam (Ativan) 1 mg PO Q4H PRN PRN Reason: for CIWA 8-10 Lorazepam (Ativan) 2 mg PO Q2H PRN PRN Reason: for CIWA 11-14 Lorazepam (Ativan Inj) 2 mg IV.PUSH Q2H PRN PRN Reason: for CIWA 11-14 Lorazepam (Ativan Inj) 2 mg IV.PUSH Q1H PRN PRN Reason: for CIWA 15-20 Lorazepam (Ativan Inj) 2 mg IV.PUSH Q15M PRN PRN Reason: for CIWA > 20 Lorazepam (Ativan Inj) 1 mg IV.PUSH Q4H PRN PRN Reason: for CIWA 8-10 Morphine Sulfate (Morphine Inj) 2 mg IV.PUSH Q4H PRN PRN Reason: PAIN 8-10 Nitroglycerin (Nitrostat Sl) 0.4 mg SL Q5M PRN PRN Reason: CHEST PAIN Ondansetron HCl (Zofran Inj) 4 mg IV.PUSH Q6H PRN PRN Reason: NAUSEA Sodium Chloride (Ns Flush) 2 ml IV.FLUSH BID TOM Sodium Chloride (Ns Flush) 2 ml IV.FLUSH PRN PRN PRN Reason: FLUSH AFTER USING IV ACCESS Allergies Allergy/AdvReac Type Severity Reaction Status Date / Time No Known Allergies Allergy Verified 07/10/18 12:38 Home Medications Medication Instructions Recorded Confirmed Type No Known Home Medications 04/27/18 07/10/18 History Exam Vital signs: Vital Signs 07/10/18 12:30 07/10/18 12:35 07/10/18 13:34 Temperature 97.6 F Pulse Rate 88 88 90 Respiratory Rate 20 20 Blood Pressure 155/77 H 135/75 Pulse Oximetry 100 100 07/10/18 14:38 Temperature Pulse Rate Respiratory Rate Blood Pressure Pulse Oximetry 97 Intake & Output 07/09/18 07/10/18 07/10/18 18:59 06:59 18:59 Intake Total 1999 Balance 1999 Weight 73 kg Intake: IV 1999 NS + KCl 40 mEq Inj 1,000 ML @ 1000 / 1000 250 mls/hr IV.CONT .Q4H TOM Rx# :[id number] NS Inj 1,000 ML @ Wide Open IV. 1000 / 1000 SIG BOLUS ONE Rx#:[id number] - Constitutional no acute distress - Routine HEENT Exam Head: Present: normocephalic, atraumatic Eye: Present: EOMI, PERRL ENT: Present: mucous membranes moist - Routine Neck Exam Present: supple, full ROM - Routine Respiratory Exam Present: CTA bilaterally - Routine Cardiovascular Exam Present: RRR, S1, S2 - Routine Abdominal Exam Present: soft, normoactive bowel sounds Comments: No hepatosplenomegaly. Negative for any peritoneal signs. - Routine Extremities Exam Comments: Negative for any lower extremity edema. - Routine Neurological Exam Present: alert, oriented X3 Sensation and motor grossly intact. Results - Labs CBC & Chem 7: 07/10/18 12:35 07/10/18 12:35 Labs: Short CBC 07/10/18 Range/Units 12:35 WBC 3.9 L (4.0-11.0) th/mm3 Hgb 16.5 (13.0-17.0) gm/dL Hct 50.2 (39.0-51.0) % Plt Count 57 L (150-450) th/mm3 BMP 07/10/18 12:35 Sodium 139 Potassium 2.8 L* Chloride 99 Carbon Dioxide 22.9 BUN 6 L Creatinine 1.10 Calcium 9.0 Cardiac Enzymes 07/10/18 Range/Units 12:35 Total Creatine Kinase 895 H (39-308) U/L CK-MB (CK-2) 4.1 H (0.5-3.6) ng/mL Troponin I 0.07 H (0.02-0.05) ng/mL Liver Function 07/10/18 Range/Units 12:35 Total Bilirubin 3.1 H (0.2-1.0) mg/dL AST 243 H (15-37) U/L ALT 67 (12-78) U/L Alkaline Phosphatase 271 H (45-117) U/L Albumin 3.9 (3.4-5.0) g/dL - Imaging Impressions Chest X-Ray 07/10/18 12:44 CONCLUSION: Cardiomegaly. No acute pulmonary disease. Caprini VTE Risk Assessment Caprini VTE Risk Assessment: Moderate/High Risk (score >= 2) VTE Pharmacological Exception Reason: Thrombocytopenia (<50) Caprini Risk Assessment Model: Point Value = 1 Point Value = 2 Point Value = 3 Point Value = 5 Age 41-60 Minor surgery BMI > 25 kg/m2 Swollen legs Varicose veins or History of unexplained or recurrent spontaneous Oral contraceptives or hormone replacement Sepsis (< 1 month) Serious lung disease, including pneumonia (< 1 month) Abnormal pulmonary function Acute myocardial infarction Congestive heart failure (< 1 month) History of inflammatory bowel disease Medical patient at bed rest Age 61-74 Arthroscopic surgery Major open surgery (> 45 min) Laparoscopic surgery (> 45 min) Malignancy Confined to bed (> 72 hours) Immobilizing plaster cast Central venous access Age >= 75 History of VTE Family history of VTE Factor V Leiden Prothrombin [id number] Lupus anticoagulant Anticardiolipin antibodies Elevated serum homocysteine Heparin-induced thrombocytopenia Other congenital or acquired thrombophilia Stroke (< 1 month) Elective arthroplasty Hip, pelvis, or leg fracture Acute spinal cord injury (< 1 month) Prophylaxis Regimen: Total Risk Factor Score Risk Level Prophylaxis Regimen 0-1 Low Early ambulation 2 Moderate Order ONE of the following: *Sequential Compression Device (SCD) *Heparin 5000 units SQ BID 3-4 Higher Order ONE of the following medications: *Heparin 5000 units SQ TID *Enoxaparin/Lovenox 40 mg SQ daily (WT < 150 kg, CrCl > 30 mL/min) *Enoxaparin/Lovenox 30 mg SQ daily (WT < 150 kg, CrCl > 10-29 mL/min) *Enoxaparin/Lovenox 30 mg SQ BID (WT < 150 kg, CrCl > 30 mL/min) AND/OR *Sequential Compression Device (SCD) 5 or more Highest Order ONE of the following medications: *Heparin 5000 units SQ TID (Preferred with Epidurals) *Enoxaparin/Lovenox 40 mg SQ daily (WT < 150 kg, CrCl > 30 mL/min) *Enoxaparin/Lovenox 30 mg SQ daily (WT < 150 kg, CrCl > 10-29 mL/min) *Enoxaparin/Lovenox 30 mg SQ BID (WT < 150 kg, CrCl > 30 mL/min) AND *Sequential Compression Device (SCD) Assessment and Plan - Plan This is a 52-year-old male history of alcohol abuse and cirrhosis of the liver, gated by esophageal varices, portal gastropathy, and poor hypertension who presented with chest pain and shortness of breathing for over 24 hours. Chest pain/shortness of breathing -Patient does not require any oxygen. He looks very comfortable. Chest pain is lasted more than 24 hours. EKG shows normal sinus rhythm. Troponin mildly elevated 0.07. Most likely this is atypical. I think this has to do more with his alcoholism. Will admit to chest pain center. We will trend troponin, monitor over telemetry, exercise stress test tomorrow. We will also get a 2D echo. Patient platelets 57,000. Since he has thrombocytopenia from his alcoholism and I am not suspecting ACS will not give aspirin at the moment. Alcoholic hepatitis -AST 243, ALT 67, INR 1.3, alk phos 277 -Most likely patient continues to drink. Encourage alcohol cessation. Continue to monitor. Hypokalemia -Most likely secondary to emesis from alcoholism. Were replenish as needed. Monitor over telemetry. Liver cirrhosis complicated by esophageal varices, portal gastropathy, portal hypertension -Alcohol cessation. Thrombocytopenia -57,000. No signs of active bleeding. Secondary to alcoholism. Continue to monitor. DVT prophylaxis -Patient has thrombocytopenia. Contraindicated. SCDs.
[2018-07-10] MEDS: Sod Chloride 0.9% Inj 1,000 ML IV.CONT SCH (16:26)
[2018-07-10 16:59] LABS: Troponin I 0.07 ng/mL (0.02-0.05)
[2018-07-10] MEDS ORDERED: Zolpidem Tartrate 5 MG Tablet PO PRN (17:14)
[2018-07-10 17:51] LABS: Troponin I 0.06 ng/mL (0.02-0.05)
[2018-07-10 18:02] LABS: CKMB Percent 0.5 % (0.0-4.0); Creatine Kinase MB 3.6 ng/mL (0.5-3.6)
[2018-07-11] MEDS: Sod Chloride 0.9% Inj 1,000 ML IV.CONT SCH (01:50)
[2018-07-11 04:33] VITALS: PULSE 69
[2018-07-11 07:03] LABS: Hematocrit 44.1 % (39.0-51.0); Hemoglobin 14.5 gm/dL (13.0-17.0); Mean Corpuscular Hemoglobin 33.5 pg (27.0-34.0); Mean Corpuscular Volume 101.5 fL (80.0-100.0); Mean Platelet Volume 9.1 fL (7.0-11.0); Platelet Count 44 th/mm3 (150-450); Red Blood Count 4.35 mil/mm3 (4.50-5.90); Red Cell Distribution Width 13.1 % (11.6-17.2); White Blood Count 4.5 th/mm3 (4.0-11.0)
[2018-07-11 07:26] LABS: Alanine Aminotransferase 48 U/L (12-78); Albumin 2.9 g/dL (3.4-5.0); Alkaline Phosphatase 188 U/L (45-117); Anion Gap 8 meq/L (5-15); Aspartate Aminotransferase 144 U/L (15-37); Blood Urea Nitrogen 6 mg/dL (7-18); Chloride 107 meq/L (98-107); Glomerular Filtration Rate Greater Than 89 mL/min (>89); Glucose,Random 75 mg/dL (74-106); Potassium 4.2 meq/L (3.5-5.1); Sodium 140 meq/L (136-145); Total Protein 7.8 g/dL (6.4-8.2)
--- NOTE | 2018-07-11 08:25 | ECG ---
Date Performed: 07/10/2018 Time Performed: 14:29:53 PTAGE: 52 years EKG: Sinus rhythm Baseline artifact Biphasic T wave V2 and V3 concerning for evolving [place] Clinical correlation is recom mended Compared to PREVIOUS TRACING there are new T wave changes PREVIOUS TRACIN07/10/18 @ 12:28 DOCTOR: Jaz Conner Interpretating Date/Time 07/11/2018 08:35:39
--- NOTE | 2018-07-11 08:25 | ECG ---
Date Performed: 07/10/2018 Time Performed: 12:28:37 PTAGE: 52 years EKG: Sinus rhythm PROLONGED QT INTERVAL ABNORMAL ECG Since the PREVIOUS TRACING , no significant change noted PREVIOUS TRACIN04/28/18 DOCTOR: Jaz Conner Interpretating Date/Time 07/11/2018 08:24:36
--- NOTE | 2018-07-11 08:27 | ECG ---
Date Performed: 07/10/2018 Time Performed: 17:11:35 PTAGE: 52 years EKG: NORMAL Sinus rhythm Biphasic anterior T waves Since the previous tracing, no significant change noted ABNORMAL ECG PREVIOUS TRACING : 07/10/2018 14.29 DOCTOR: Jaz Conner Interpretating Date/Time 07/11/2018 08:27:09
--- NOTE | 2018-07-11 08:42 | P.PNIM ---
Subjective Interval history: Follow-up chest pain. Patient seen and examined lying in bed comfortably no apparent distress. No reports of any acute events overnight. Chest pain is resolved. Patient will undergo cardiac treadmill stress test to further rule out any ischemia. Further auscultation treatment plan will depend on results. Afebrile. Vital signs stable. Physical Exam Vital signs: Vital Signs 07/10/18 12:30 07/10/18 12:35 07/10/18 13:34 Temperature 97.6 F Pulse Rate 88 88 90 Respiratory Rate 20 20 Blood Pressure 155/77 H 135/75 Pulse Oximetry 100 100 07/10/18 14:38 07/10/18 14:52 07/10/18 14:58 Temperature Pulse Rate 75 Respiratory Rate 18 Blood Pressure 128/72 Pulse Oximetry 97 95 07/10/18 16:00 07/10/18 20:00 07/10/18 23:04 Temperature 96.9 F L 97.7 F Pulse Rate 81 75 75 Respiratory Rate 16 18 Blood Pressure 125/70 116/65 Pulse Oximetry 96 94 L 07/11/18 00:00 07/11/18 04:00 Temperature 97.5 F L 96.7 F L Pulse Rate 73 69 Respiratory Rate 18 18 Blood Pressure 110/71 117/72 Pulse Oximetry 93 L 94 L Intake & Output 07/10/18 07/11/18 07/11/18 18:59 06:59 18:59 Intake Total 1500 / 1500 3200 / 3200 Output Total 300 / 300 1850 / 1850 Balance 1200 / 1200 1350 / 1350 Weight 73 kg 73 kg Intake: IV 1500 / 1500 3000 / 3000 NS + KCl 40 mEq Inj 1,000 ML @ 500 / 500 3000 / 3000 250 mls/hr IV.CONT .Q4H TOM Rx# :[id number] NS Inj 1,000 ML @ Wide Open IV. 1000 / 1000 SIG BOLUS ONE Rx#:[id number] Oral 200 / 200 Output: Urine 300 / 300 1850 / 1850 Other: Date of Last Bowel Movement 07/09/18 Weight On Admission 73 kg Narrative: GENERAL: Well-developed, well-nourished patient in [employer]. SKIN: Warm and dry. No rash. HEAD: Normocephalic. Atraumatic. EYES: Pupils equal and round. No scleral icterus. No injection or drainage. ENT: No nasal bleeding or discharge. Mucous membranes pink and moist. NECK: Supple. Trachea midline. CARDIOVASCULAR: Regular rate and rhythm. S1, S2 noted. No murmur appreciated. No chest pain to palpation. RESPIRATORY: No accessory muscle use. Clear to auscultation. Breath sounds equal bilaterally. GASTROINTESTINAL: Abdomen soft, non-tender, nondistended. Normoactive bowel sounds x4. MUSCULOSKELETAL: No obvious deformities. Extremities without clubbing, cyanosis , or edema. NEUROLOGICAL: Awake and alert. No obvious cranial nerve deficits. Motor grossly within normal limits. 5/5 muscle strength in bilateral upper and lower extremities. Normal speech. PSYCHIATRIC: Appropriate mood and affect; insight and judgment normal. Results - Labs CBC & Chem 7: 07/11/18 06:00 07/11/18 06:00 Laboratory Results - last 24 hr 07/10/18 07/10/18 07/10/18 12:35 12:35 12:35 CBC w Diff Slide review pending WBC 3.9 L RBC 5.03 Hgb 16.5 Hct 50.2 MCV 100.0 MCH 32.8 MCHC 32.8 RDW 12.9 Plt Count 57 L MPV 9.3 Neut % (Auto) 76.6 H Lymph % (Auto) 13.3 [place] % (Auto) 9.1 H Eos % (Auto) 0.2 Baso % (Auto) 0.8 Neut # (Auto) 3.0 Lymph # (Auto) 0.5 L [place] # (Auto) 0.4 Eos # (Auto) 0.0 Baso # (Auto) 0.0 WBC Differential . Diff Scan Auto diff confirmed Differential Comment . Platelet Estimate Low L Platelet Morphology Normal PT 12.7 H INR 1.3 APTT 28.7 Sodium 139 Potassium 2.8 L* Chloride 99 Carbon Dioxide 22.9 Anion Gap 17 H BUN 6 L Creatinine 1.10 Estimated GFR 70 L Random Glucose 104 Calcium 9.0 Total Bilirubin 3.1 H AST 243 H ALT 67 Alkaline Phosphatase 271 H Total Creatine Kinase 895 H CK-MB (CK-2) 4.1 H CK-MB (CK-2) % 0.5 Troponin I 0.07 H Total Protein 10.3 H Albumin 3.9 Lipase 163 07/10/18 07/10/18 07/10/18 14:35 17:15 17:15 CBC w Diff WBC RBC Hgb Hct MCV MCH MCHC RDW Plt Count MPV Neut % (Auto) Lymph % (Auto) [place] % (Auto) Eos % (Auto) Baso % (Auto) Neut # (Auto) Lymph # (Auto) [place] # (Auto) Eos # (Auto) Baso # (Auto) WBC Differential Diff Scan Differential Comment Platelet Estimate Platelet Morphology PT INR APTT Sodium Potassium 4.5 D Chloride Carbon Dioxide Anion Gap BUN Creatinine Estimated GFR Random Glucose Calcium Total Bilirubin AST ALT Alkaline Phosphatase Total Creatine Kinase 715 H 670 H CK-MB (CK-2) 3.6 CK-MB (CK-2) % 0.5 Troponin I 0.07 H 0.06 H Total Protein Albumin Lipase 07/11/18 07/11/18 06:00 06:00 CBC w Diff WBC 4.5 RBC 4.35 L Hgb 14.5 D Hct 44.1 MCV 101.5 H MCH 33.5 MCHC 33.0 RDW 13.1 Plt Count 44 L MPV 9.1 Neut % (Auto) Lymph % (Auto) [place] % (Auto) Eos % (Auto) Baso % (Auto) Neut # (Auto) Lymph # (Auto) [place] # (Auto) Eos # (Auto) Baso # (Auto) WBC Differential Diff Scan Differential Comment Platelet Estimate Platelet Morphology PT INR APTT Sodium 140 Potassium 4.2 Chloride 107 D Carbon Dioxide 25.0 Anion Gap 8 BUN 6 L Creatinine 0.77 Estimated GFR Greater than 89 Random Glucose 75 Calcium 8.0 L D Total Bilirubin 2.6 H AST 144 H ALT 48 Alkaline Phosphatase 188 H Total Creatine Kinase CK-MB (CK-2) CK-MB (CK-2) % Troponin I Total Protein 7.8 D Albumin 2.9 L D Lipase - Imaging Impressions Chest X-Ray 07/10/18 12:44 CONCLUSION: Cardiomegaly. No acute pulmonary disease. Assessment and Plan - Plan This is a 52-year-old male history of alcohol abuse and cirrhosis of the liver, gated by esophageal varices, portal gastropathy, and poor hypertension who presented with chest pain and shortness of breathing for over 24 hours. Chest pain, atypical -Did present with some shortness of breath. Patient does not require any oxygen. Resting comfortably in bed. Chest pain lasted more than 24 hours, now has completely resolved.. EKG shows normal sinus rhythm. Troponin mildly elevated 0.07. Most likely this is atypical. Suspect secondary to his alcoholism. Telemetry monitored overnight. Obtain 2D echo, awaiting results. Patient platelets 57,000. Since he has thrombocytopenia from his alcoholism and I am not suspecting ACS will not give aspirin at the moment. Patient will undergo cardiac treadmill stress test to further rule any ischemia. Further hospitalization treatment plan will depend on results. Alcoholic hepatitis -AST 243, ALT 67, INR 1.3, alk phos 277. Trending down today. -Most likely patient continues to drink. -Encouraged alcohol cessation. Continue to monitor. Hypokalemia. Improved. -Most likely secondary to emesis from alcoholism. Replenish as needed. Monitor over telemetry. Liver cirrhosis complicated by esophageal varices, portal gastropathy, portal hypertension -Alcohol cessation. Thrombocytopenia -57,000. No signs of active bleeding. Secondary to alcoholism. Continue to monitor. DVT prophylaxis -Patient has thrombocytopenia. Contraindicated. SCDs.
[2018-07-11 08:44] VITALS: BP 123/81; RESP 14; TEMP 98.3; O2SAT 93
[2018-07-11] MEDS ORDERED: Pantoprazole Inj 40 MG Vial IV.PUSH SCH (13:00)
--- NOTE | 2018-07-11 16:32 | ECHRPT ---
Indication: CHEST PAIN CONCLUSIONS The left ventricular systolic function is normal with an estimated ejection fraction in the range of 60-65%. Normal left ventricular size. Wall thickness is normal. No regional wall motion abnormalities are present. Mild thickening of the mitral valve leaflets. Trace mitral valve regurgitation. Trace aortic valve regurgitation. Structurally normal tricuspid valve; there is mild tricuspid valve regurgitation. The estimated pulmonary arterial pressure is 31 mmHg. BP: / HR: Rhythm: MEASUREMENTS (Male / Female) Normal Values Technical Quality: 2D ECHO LV Diastolic Diameter PLAX 4.5 cm 4.2 - 5.9 / 3.9 - 5.3 cm LV Systolic Diameter PLAX 3.2 cm IVS Diastolic Thickness 0.9 cm 0.6 - 1.0 / 0.6 - 0.9 cm LVPW Diastolic Thickness 1.0 cm 0.6 - 1.0 / 0.6 - 0.9 cm LV Relative Wall Thickness 0.4 RV Internal Dim ED PLAX 3.1 cm LVOT Diameter 2.2 cm LA Systolic Diameter LX 3.2 cm 3.0 - 4.0 / 2.7 - 3.8 cm LV Ejection Fraction MOD 4C 66.7 % LV Ejection Fraction 4C AL 67.7 % M-MODE Aortic Root Diameter MM 3.3 cm LA Systolic Diameter MM 3.4 cm LA Ao Ratio MM 1.0 AV Cusp Separation MM 2.4 cm DOPPLER AV Peak Velocity 117.0 cm/s AV Peak Gradient 5.5 mmHg AI Peak Velocity 208.5 cm/s AI Peak Gradient 17.4 mmHg AI Pressure Half Time 1089.0 ms LVOT Peak Velocity 116.0 cm/s LVOT Peak Gradient 5.4 mmHg AV Area Cont Eq pk 3.8 cm LV E' Lateral Velocity 8.7 cm/s LV E' Septal Velocity 6.2 cm/s TR Peak Velocity 230.0 cm/s TR Peak Gradient 21.2 mmHg Right Atrial Pressure 10.0 mmHg Pulmonary Artery Systolic Pressu 31.2 mmHg Right Ventricular Systolic Press 31.2 mmHg PV Peak Velocity 79.6 cm/s PV Peak Gradient 2.5 mmHg FINDINGS LEFT VENTRICLE The left ventricular systolic function is normal with an estimated ejection fraction in the range of 60-65%. Normal left ventricular size. Wall thickness is normal. No regional wall motion abnormalities are present. RIGHT VENTRICLE Normal right ventricular size and systolic function. LEFT ATRIUM The left atrial size is normal. RIGHT ATRIUM The right atrial size is normal. ATRIAL SEPTUM Normal atrial septal thickness without atrial level shunting by limited color doppler interrogation. AORTA The aortic root and proximal ascending aorta are normal in size on limited imaging. MITRAL VALVE Mild thickening of the mitral valve leaflets. Trace mitral valve regurgitation. AORTIC VALVE Trileaflet aortic valve. Trace aortic valve regurgitation. TRICUSPID VALVE Structurally normal tricuspid valve there is mild tricuspid valve regurgitation. The estimated pulmonary arterial pressure is 31.2 mmHg. PULMONARY VALVE No pulmonary valve regurgitation or stenosis. VESSELS The inferior vena cava is normal in size. PERICARDIUM No pericardial effusion. Scout Newberry MD, FACC (Electronically Signed) Final Date:11 July 2018 16:31
--- NOTE | 2018-07-26 08:57 | TR ---
Date Performed: 07/11/2018 Time Performed: 09:28:05 DOCTOR: Jaz Conner DRUG LIST: CLINICAL HISTORY: CHEST PAIN REASON FOR TEST: Chest pain REASON FOR ENDING: OBSERVATION: CONCLUSION: Reji protocol attempted, test stopped secondary to shortness of breath. Poor exerci se tolerance. Artifact throughout test. No ST changes seen. BP with good response. Recovery quick and unremarkable. Maximum KZ=962 Target YF=828 Maximum DC=444/90 Total Exercise Time=3:03 COMMENTS: No ischemia
== END 2018-07-11 11:16 | disposition home or self-care (01) ==
LOC: PHED 12:25 → PHEDA 12:25 → PH3 15:08
PROVIDERS: ADMIT Family Medicine; ATTEND Family Medicine